=== PATIENT | male | born 1955 | race Caucasian/White ===

== ENCOUNTER 2016-12-24 11:06 | Emergency (ER) | payer MEDICARE, MEDICAID, SELFPAY ==
[2016-12-24 11:18] VITALS: BP 166/90
[2016-12-24] MEDS ORDERED: HYDROmorphone 1 MG/ML Syringe IM ONE (11:50)
--- NOTE | 2016-12-24 12:00 | EDM.PDOC ---
ED HPI GENERAL MEDICAL PROBLEM - General Chief Complaint: General Stated Complaint: RIB PAIN /SOB Time Seen by Provider: 12/24/16 11:24 Source of Information: Reports: Patient History Limitations: Reports: No limitations - History of Present Illness INITIAL COMMENTS - FREE TEXT/NARRATIVE: Patient is a 61-year-old male who presents to the ED complaining of right sided rib pain. Patient states this past October he fell on his left side and ended up having a CT of the chest revealing rib fractures to the left side. There was no rib fractures present on the right. Few days later patient slipped while walking on the snow/ice and grabbed a pickup mirror with his right arm catching himself from falling. Patient states he developed immediate discomfort to his right axilla with radiation of pain to the right anterior chest. Since then he's had pain to the right lateral chest that radiates anteriorly described as a sharp sensation relieved with some relief taking Percocet tabs. Patient is on chronic pain medications for lower extremity injury and prescribed Percocet tabs by Dr. Armas. Patient states discomfort to his right chest has minimally changed since onset. He presents to the ED today for further evaluation since he was here already seeing Dr. Armas. Patient does have a history of COPD with worsening cough as of recently secondary to viral upper respiratory infection. Denies any increase in shortness of breath with a discomfort. Denies any fever/chills, nausea/vomiting , diaphoresis, dizziness, lightheadedness, increased swelling to lower extremities, unilateral swelling to lower extremities, history of DVT/PE, hemoptysis, recent surgery, recent hospitalization, or history of cancer. Duration: Constant, Waxing/waning Location: Reports: chest Quality: Reports: Ache, Sharp, Stabbing, Throbbing Severity: moderate Improves with: Reports: None Worsens with: Reports: Other (palpation), Movement Context: Reports: Other (fall) Associated Symptoms: Reports: chest pain, cough w sputum, shortness of breath. Denies: fever/chills, loss of appetite, nausea/vomiting, syncope Treatments CLINICAL CYTOGENETICIST: Reports: Other (see below) (see HPI) Right Thoracic Pain Score (Numeric/FACES): 9 - Related Data Allergies Allergy/AdvReac Type Severity Reaction Status Date / Time No Known Allergies Allergy Verified 12/24/16 11:23 Home Meds: Home Meds Metaxalone [Skelaxin] 800 mg PO Q8HR PRN 05/27/15 [History] Pregabalin [Lyrica] 150 mg PO TID 05/27/15 [History] tiZANidine [Zanaflex] 2 - 4 mg PO BEDTIME PRN 05/27/15 [History] Amiodarone [Cordarone] 100 mg PO DAILY 06/09/16 [History] Furosemide [Lasix] 40 mg PO TID 06/09/16 [History] Labetalol [Normodyne] 200 mg PO Q12H 06/09/16 [History] atorvaSTATin [Lipitor] 40 mg PO BEDTIME 06/09/16 [History] Budesonide/Formoterol [Symbicort 160-4.5 MCG] 1 puff INH ASDIRECTED PRN [History] Lisinopril 5 mg PO DAILY 09/13/16 [History] oxyCODONE HCl/Acetaminophen [Percocet 5-325 mg Tablet] 1 tab PO Q6HR PRN [History] Albuterol/Ipratropium [DuoNeb 3.0-0.5 MG/3 ML] 3 ml NEB Q6HRRT #90 neb 11/26/16 [Rx] predniSONE 20 mg PO WITHBREAKFAST #20 tablet 11/26/16 [Rx] Apixaban [Eliquis] 5 mg PO DAILY 12/24/16 [History] Carvedilol [Carvedilol] 12.5 mg PO DAILY 12/24/16 [History] Past Medical History HEENT History: Reports: Impaired vision Other HEENT History: wears glasses Cardiovascular History: Reports: CAD, Hypertension, NM, Pacemaker, SOB on exertion, Stents Respiratory History: Reports: COPD, SOB Genitourinary History: Reports: Other (see below) Other Genitourinary History: states had "kidney issues" while in hospital at [facility], unable to tell what problem is Musculoskeletal History: Reports: Arthritis, Back pain, chronic, Other (see below) Other Musculoskeletal History: chronic pain Psychiatric History: Reports: Addiction Other Psychiatric History: smokes - Infectious Disease History Infectious Disease History: Reports: Measles - Past Surgical History Cardiovascular Surgical History: Reports: Coronary artery stent, Pacer Other Musculoskeletal Surgeries/Procedures:: Left knee Social & Family History - Family History Family Medical History: Noncontributory - Tobacco Use Smoking Status *Q: Current Every Day Smoker Years of Tobacco use: 40 Packs/Tins Daily: 1 Used Tobacco, but Quit: No Second Hand Smoke Exposure: Yes - Caffeine Use Caffeine Use: Reports: Coffee, Soda - Alcohol Use Days Per Week of Alcohol Use: 1 Number of Drinks Per Day: 6 Total Drinks Per Week: 6 - Recreational Drug Use Recreational Drug Use: No ED ROS GENERAL - Review of Systems Review Of Systems: ROS reveals no pertinent complaints other than HPI. Respiratory: Reports: shortness of breath (chronic), pleuritic chest pain, cough , sputum. Denies: wheezing, hemoptysis Cardiovascular: Reports: Chest pain, Dyspnea on exertion (chronic). Denies: Edema, Lightheadedness, Orthopnea, Palpitations, PND, Syncope GI/Abdominal: Denies: Abdominal pain, Diarrhea, Nausea, Vomiting Musculoskeletal: Denies: shoulder pain, arm pain, back pain Neurological: Denies: dizziness, headache, numbness, syncope, tingling ED EXAM, GENERAL - Physical Exam Exam: See Below Exam Limited By: No limitations General Appearance: alert, WD/WN, no apparent distress Eye Exam: bilateral eye: PERRL Ears: hearing grossly normal Nose: normal inspection Throat/Mouth: Normal voice, No airway compromise Neck: normal inspection, supple, non-tender, full range of motion Respiratory/Chest: no respiratory distress, lungs clear, normal breath sounds, no accessory muscle use, other (Tenderness along the fourth through seventh rib along the axillary line with radiation discomfort to the anterior chest. No deformity, crepitus, swelling, bruising noted.) Cardiovascular: normal peripheral pulses, regular rate, rhythm, no murmur Peripheral Pulses: 2+: radial (R) GI/Abdominal: normal bowel sounds, soft, non tender, no organomegaly, no distention Back Exam: normal inspection, full range of motion. No: CVA tenderness (L), CVA tenderness (R), paraspinal tenderness, vertebral tenderness Extremities: normal inspection, normal range of motion, non-tender, no pedal edema, normal capillary refill, other (Increased discomfort to the right axilla with elevation of arm above shoulder.) Neurological: alert, oriented, CN II-XII intact, normal cognition, no motor/ sensory deficits Psychiatric: normal affect, normal mood Skin Exam: Warm, Dry, Intact, Normal color, No rash Course - Vital Signs Last Recorded V/S: Last Vital Signs Temp 97.3 F 12/24/16 11:14 Pulse 69 12/24/16 11:14 Resp 16 12/24/16 11:14 BP 166/90 H 12/24/16 11:14 Pulse Ox 100 12/24/16 11:14 - Orders/Labs/Meds Orders: Active Orders 24 hr Category Date Time Status EKG Documentation Completion [RC] STAT Care 12/24/16 11:54 Active Labs: Laboratory Tests 12/24/16 12/24/16 12/24/16 Range/Units 13:37 13:37 13:45 WBC 7.28 (4.23-9.07) K/mm3 RBC 4.57 L (4.63-6.08) M/mm3 Hgb 14.5 (13.7-17.5) gm/L Hct 45.3 (40.1-51.0) % MCV 99.1 H (79.0-92.2) fl MCH 31.7 (25.7-32.2) pg MCHC 32.0 L (32.2-35.5) g/dl RDW Std Deviation 59.8 H (35.1-43.9) fL Plt Count 239 (163-337) K/mm3 MPV 10.1 (9.4-12.3) fl Neut % (Auto) 78.4 H (34.0-67.9) % Lymph % (Auto) 11.8 L (21.8-53.1) % [place] % (Auto) 6.9 (5.3-12.2) % Eos % (Auto) 2.1 (0.8-7.0) Baso % (Auto) 0.5 (0.1-1.2) % Neut # 5.71 H (1.78-5.38) K/mm3 Lymph # 0.86 L (1.32-3.57) K/mm3 [place] # 0.50 (0.30-0.82) K/mm3 Eos # 0.15 (0.04-0.54) K/mm3 Baso # 0.04 (0.01-0.08) K/mm3 Sodium 142 (136-145) mEq/L Potassium 3.7 (3.5-5.1) mEq/L Chloride 102 (98-107) mEq/L Carbon Dioxide 31 (21-32) mEq/L Anion Gap 12.7 (5-15) BUN 12 (7-18) mg/dL Creatinine 1.1 (0.7-1.3) mg/dL Est Cr Clr Drug Dosing 53.61 mL/min Estimated GFR (MDRD) > 60 (>60) mL/min BUN/Creatinine Ratio 10.9 L (14-18) Glucose 121 H (80-115) mg/dL Calcium 8.8 (8.5-10.1) mg/dL Total Bilirubin 0.3 (0.2-1.0) mg/dL AST 16 (15-37) U/L ALT 22 (16-63) U/L Alkaline Phosphatase 130 H (46-116) U/L Troponin I < 0.017 (0.00-0.056) ng/mL C-Reactive Protein 0.6 (<1.0) mg/dL Total Protein 7.1 (6.4-8.2) g/dl Albumin 3.7 (3.4-5.0) g/dl Globulin 3.4 gm/dL Albumin/Globulin Ratio 1.1 (1-2) Urine Color Yellow (Yellow) Urine Appearance Clear (Clear) Urine pH 6.5 (5.0-8.0) Ur Specific [employer] 1.020 (1.005-1.030) Urine Protein 1+ H (Negative) Urine Glucose (UA) Negative (Negative) Urine Ketones Negative (Negative) Urine Occult Blood Negative (Negative) Urine Nitrite Negative (Negative) Urine Bilirubin Negative (Negative) Urine Urobilinogen 0.2 (0.2-1.0) Ur Leukocyte Esterase Negative (Negative) Urine RBC Not seen (0-5) /hpf Urine WBC 0-5 (0-5) /hpf Ur Squamous Epith Cells 0-5 (0-5) /hpf Urine Bacteria Not seen (FEW) /hpf Urine Mucus Not seen (FEW) /hpf Meds: Medications Discontinued Medications Generic Name Dose Route Start Last Admin Trade Name Freq PRN Reason Stop Dose Admin Hydromorphone HCl 1 mg 12/24/16 11:50 12/24/16 11:56 Dilaudid IM 12/24/16 11:51 1 mg ONETIME ONE Administration - Re-Assessments/Exams Free Text/Narrative Re-Assessment/Exam: 12/24/16 12:[address] Javed, multiple blebs, lung scaring with no obvious acute bony abnormality. Reviewed previous CXR and CT of the chest. EKG revealed sinus rhythm at a rate of 66, normal P axis, NE interval is 152, QTC is 456, no acute ST changes noted. 12/24/16 13:03 Reassessment, asked the patient if the pain has improved with the Dilaudid. He states no. Now has pain is underneath his right rib. Will obtain basic labs, x-ray, and UA. 12/24/16 15:02 Labs reviewed. CBC and chemistry panel revealed no concerning findings at this point. Troponin was within normal limits. UA came back negative. X-ray the abdomen revealed scattered gas with the small bowel and colon is seen appears within normal limits at this time. Mild scoliosis is present no free air seen. Vascular calcifications noted. Will discharge patient home with instructions as documented. Departure - Departure Time of Disposition: 15:04 Disposition: Home, Self-Care 01 Condition: good Clinical Impression: Rib pain on right side, Constipation due to pain medication, Atypical chest pain Referrals: Geno Farley NP [Primary Care Provider] - Forms: ED Department Discharge Additional Instructions: Please follow up with PCP in the next week for reevaluation of right-sided chest discomfort. Suggest apply warm compresses to the affected area as needed for pain relief. Utilize Tylenol and ibuprofen in alternating fashion for discomfort. Refrain from any activities that cause worsening pain. In addition abdominal x-ray revealed increased stool pattern suggesting your constipated secondary to chronic pain meds. Suggest increasing fiber intake, increased exercise, increase water intake, and utilize MiraLax one capful every day for the next 6 weeks. Will also have you utilize Colace 100 mg twice a day for the next 5 days. Return back to the ED if you develop increasing pain, nausea/vomiting, fever/chills, worsening chest pain, worsening shortness breath , or any additional new or worsening symptoms. - My Orders Last 24 Hours: My Active Orders 12/24/16 11:54 EKG Documentation Completion [RC] STAT - Assessment/Plan Last 24 Hours: My Active Orders 12/24/16 11:54 EKG Documentation Completion [RC] STAT
--- NOTE | 2016-12-24 13:01 | CR ---
Chest and right ribs: Frontal view of the chest was obtained as well as 3 views of the right ribs. Comparison: Previous chest x-ray of 11/26/16. Stable parenchymal scarring seen within the right upper lung. Interstitial change is seen which also is stable compatible with fibrosis. Scattered scarring is also seen. Heart size does not appear enlarged. Tortuous thoracic aorta is seen. Pacemaker is present. Several old healed right lower rib fractures are seen. I do not see a definite acute fracture. Impression: 1. Multiple findings as noted above. No definite acute right-sided rib fracture is seen. Nondisplaced fracture could easily be missed. Diagnostic code #2
--- NOTE | 2016-12-24 13:52 | CR ---
Abdomen: Supine and upright views of the abdomen were obtained. Comparison: No previous abdominal x-ray. Scattered gas within small bowel and colon is seen which appears within normal limits at this time. Mild scoliosis is present within the spine. No free air is seen. Vascular calcification is noted. Impression: 1. Findings felt to be incidental as described above. Diagnostic code #2
== END 2016-12-24 15:20 | disposition home or self-care (01) ==
LOC: JD.ED 11:06
DX: R07.81 Pleurodynia (principal); R07.89 Other chest pain; K59.03 Drug induced constipation; I10 Essential (primary) hypertension; I25.2 Old myocardial infarction; F17.210 Nicotine dependence, cigarettes, uncomplicated; I25.10 Atherosclerotic heart disease of native coronary artery without angina pectoris; Z95.5 Presence of coronary angioplasty implant and graft; Z95.0 Presence of cardiac pacemaker; Z79.899 Other long term (current) drug therapy; S32.10XA Unspecified fracture of sacrum, initial encounter for closed fracture; S22.49XA Multiple fractures of ribs, unspecified side, initial encounter for closed fracture; W19.XXXA Unspecified fall, initial encounter; M48.06 Spinal stenosis, lumbar region; M80.88XA Other osteoporosis with current pathological fracture, vertebra(e), initial encounter for fracture; M41.9 Scoliosis, unspecified
CPT/HCPCS: 36415; 71101; 72100; 72170; 72220; 74020; 80053; 81001; 84484; 85025; 86140; 93005; 96372; 99213; 99284; J1170

== ENCOUNTER 2017-05-24 11:13 | Emergency (ER) | payer MEDICARE, MEDICAID, SELFPAY ==
[2017-05-24] MEDS ORDERED: Sodium Chloride 0.9% 10 ML Syringe FLUSH PRN (11:28)
[2017-05-24] MEDS ORDERED: Sodium Chloride 0.9% 500 ML IV ONE (11:28)
--- NOTE | 2017-05-24 11:52 | EDM.PDOC ---
ED HPI GENERAL MEDICAL PROBLEM - General Chief Complaint: Chest Pain Stated Complaint: CHEST PAIN FALLING BACK PAIN Time Seen by Provider: 05/24/17 11:18 Source of Information: Reports: Patient, RN Notes Reviewed - History of Present Illness INITIAL COMMENTS - FREE TEXT/NARRATIVE: 62-year-old male comes in with generalized weakness, dizziness and history of passing out twice in the past 5 hours. He states that his first episode of syncope was after getting up out of bed this morning around 6 AM. Become weak lightheaded and dizzy and then in his words "passed out ending up on the floor. Hydration of LOC uncertain. He then states that this did happen again a few hours later once again when standing up to walk to the bathroom. He may have hit his head lightly. He has no major headache. He has chronic neck and back discomfort but that is not worse than usual. He does feel tightness across his upper chest. However he states with his COPD his chest usually does feel tight. He also is short of breath and that also is a chronic problem for him. Did have one stent placed one year ago. He does take eloquis and also is on daily baby aspirin which she did take this morning as usual. Unfortunately he does continue to smoke. He states he has had productive cough at times clear, at times colored phlegm. No recent fever or chills Back Pain Score (Numeric/FACES): 7 - Related Data Allergies Allergy/AdvReac Type Severity Reaction Status Date / Time No Known Allergies Allergy Verified 05/24/17 11:25 Home Meds: Home Meds Amiodarone [Cordarone] 100 mg PO DAILY 06/09/16 [History] Furosemide [Lasix] 40 mg PO BID 06/09/16 [History] atorvaSTATin [Lipitor] 40 mg PO BEDTIME 06/09/16 [History] Budesonide/Formoterol [Symbicort 160-4.5 MCG] 2 puff INH BID 09/13/16 [History] Lisinopril 5 mg PO DAILY 09/13/16 [History] Apixaban [Eliquis] 5 mg PO BID 12/24/16 [History] Carvedilol [Carvedilol] 12.5 mg PO BID 12/24/16 [History] Albuterol/Ipratropium [DuoNeb 3.0-0.5 MG/3 ML] 3 ml NEB QID 08/11/17 [History] Omeprazole 40 mg PO BID 05/24/17 [History] Spironolactone [Aldactone] 25 mg PO DAILY 05/24/17 [History] Past Medical History HEENT History: Reports: Impaired Vision Other HEENT History: wears corrective lenses Cardiovascular History: Reports: CAD, Hypertension, NM, Pacemaker, SOB on Exertion, Stents Respiratory History: Reports: COPD, SOB Genitourinary History: Reports: Other (See Below) Other Genitourinary History: states had "kidney issues" while in hospital at [facility], unable to tell what problem is Musculoskeletal History: Reports: Arthritis, Back Pain, Chronic, Other (See Below) Other Musculoskeletal History: chronic pain Psychiatric History: Reports: Addiction Other Psychiatric History: smokes - Infectious Disease History Infectious Disease History: Reports: Measles - Past Surgical History Cardiovascular Surgical History: Reports: Coronary Artery Stent, Pacer Social & Family History - Family History Family Medical History: Noncontributory - Tobacco Use Smoking Status *Q: Current Every Day Smoker Years of Tobacco use: 40 Packs/Tins Daily: 1 Used Tobacco, but Quit: No Second Hand Smoke Exposure: No - Caffeine Use Caffeine Use: Reports: Coffee - Alcohol Use Days Per Week of Alcohol Use: 1 Number of Drinks Per Day: 6 Total Drinks Per Week: 6 - Recreational Drug Use Recreational Drug Use: No ED ROS GENERAL - Review of Systems Review Of Systems: See Below Constitutional: Reports: Diaphoresis (Gone). Denies: Fever, Chills HEENT: Denies: Throat Pain, Throat Swelling, Vertigo Respiratory: Reports: Shortness of Breath (Chronically, exertional), Cough, Sputum. Denies: Pleuritic Chest Pain Cardiovascular: Reports: Chest Pain (Anterior chest does feel tight, did have some radiation to his shoulder earlier this morning, that is gone), Dyspnea on Exertion, Lightheadedness, Palpitations (2), Syncope. Denies: Edema GI/Abdominal: Reports: Diarrhea (Somewhat chronic). Denies: Abdominal Pain ( occasional), Nausea, Vomiting Musculoskeletal: Reports: Neck Pain (Chronic), Shoulder Pain (Gone). Denies: Leg Pain Neurological: Reports: Dizziness (Worse when standing), Weakness (Generalized). Denies: Trouble Speaking ED EXAM, GENERAL - Physical Exam Exam: See Below General Appearance: Alert, No Apparent Distress Eye Exam: Bilateral Eye: PERRL Throat/Mouth: Normal Inspection, Normal Oropharynx Head: Atraumatic Neck: Supple, Full Range of Motion Respiratory/Chest: Respiratory Distress (Mild tachypnea). No: Rales, Rhonchi, Wheezing Cardiovascular: Regular Rate, Rhythm GI/Abdominal: Soft, Non-Tender Back Exam: No: CVA Tenderness (L), CVA Tenderness (R) Extremities: Other (He does have skin changes of stasis dermatitis bilateral). No: Pedal Edema, Leg Pain, Increased Warmth, Redness Skin Exam: Warm, Dry EKG INTERPRETATION EKG Date: 05/24/17 Rhythm: NSR [place]: Normal P-Wave: Present QRS: Normal ST-T: Normal Course - Vital Signs Last Recorded V/S: Last Vital Signs Temp 97.7 F 05/24/17 11:19 Pulse 68 05/24/17 15:50 Resp 16 05/24/17 15:50 BP 138/72 05/24/17 15:50 Pulse Ox 92 L 05/24/17 15:50 - Orders/Labs/Meds Orders: Active Orders 24 hr Category Date Time Status EKG 12 Lead [EKG Documentation Completion] [RC] STAT Care 05/24/17 11:26 Active Peripheral IV Care [RC] . DIRECTED Care 05/24/17 11:28 Active Peripheral IV Insertion Adult [OM.PC] Stat Oth 05/24/17 11:28 Ordered Labs: Laboratory Tests 05/24/17 05/24/17 05/24/17 Range/Units 11:30 11:30 14:10 WBC 10.13 H (4.23-9.07) K/mm3 RBC 3.90 L (4.63-6.08) M/mm3 Hgb 12.7 L (13.7-17.5) gm/L Hct 39.1 L (40.1-51.0) % MCV 100.3 H (79.0-92.2) fl MCH 32.6 H (25.7-32.2) pg MCHC 32.5 (32.2-35.5) g/dl RDW Std Deviation 56.7 H (35.1-43.9) fL Plt Count 224 (163-337) K/mm3 MPV 10.7 (9.4-12.3) fl Neut % (Auto) 75.6 H (34.0-67.9) % Lymph % (Auto) 8.8 L (21.8-53.1) % [place] % (Auto) 11.8 (5.3-12.2) % Eos % (Auto) 2.9 (0.8-7.0) Baso % (Auto) 0.6 (0.1-1.2) % Neut # (Auto) 7.66 H (1.78-5.38) K/mm3 Lymph # (Auto) 0.89 L (1.32-3.57) K/mm3 [place] # (Auto) 1.20 H (0.30-0.82) K/mm3 Eos # (Auto) 0.29 (0.04-0.54) K/mm3 Baso # (Auto) 0.06 (0.01-0.08) K/mm3 Manual Slide Review Abnormal smear Sodium 137 (136-145) mEq/L Potassium 4.5 (3.5-5.1) mEq/L Chloride 103 (98-107) mEq/L Carbon Dioxide 27 (21-32) mEq/L Anion Gap 11.5 (5-15) BUN 20 H (7-18) mg/dL Creatinine 1.6 H (0.7-1.3) mg/dL Est Cr Clr Drug Dosing 33.35 mL/min Estimated GFR (MDRD) 44 (>60) mL/min BUN/Creatinine Ratio 12.5 L (14-18) Glucose 93 (80-115) mg/dL Calcium 9.4 (8.5-10.1) mg/dL Total Bilirubin 0.5 (0.2-1.0) mg/dL AST 21 (15-37) U/L ALT 23 (16-63) U/L Alkaline Phosphatase 74 (46-116) U/L Troponin I < 0.017 < 0.017 (0.00-0.056) ng/mL [id number] Pept 1588 H (0-125) pg/mL Total Protein 6.9 (6.4-8.2) g/dl Albumin 3.7 (3.4-5.0) g/dl Globulin 3.2 gm/dL Albumin/Globulin Ratio 1.2 (1-2) Meds: Medications Discontinued Medications Generic Name Dose Route Start Last Admin Trade Name Aye PRN Reason Stop Dose Admin Hydromorphone HCl 0.5 mg 05/24/17 12:14 05/24/17 12:22 Dilaudid IVPUSH 05/24/17 12:15 0.5 mg ONETIME ONE Administration Hydromorphone HCl 0.5 mg 05/24/17 12:47 05/24/17 13:04 Dilaudid IVPUSH 05/24/17 12:48 0.5 mg ONETIME ONE Administration Hydromorphone HCl 0.5 mg 05/24/17 14:40 05/24/17 14:47 Dilaudid IVPUSH 05/24/17 14:41 0.5 mg ONETIME ONE Administration Sodium Chloride 500 mls @ 999 mls/hr 05/24/17 11:28 05/24/17 11:35 Normal Saline IV 05/24/17 11:58 999 mls/hr .BOLUS ONE Administration Sodium Chloride 10 ml 05/24/17 11:28 05/24/17 11:35 Saline Flush FLUSH 10 ml ASDIRECTED PRN Administration Keep Vein Open - Re-Assessments/Exams Free Text/Narrative Re-Assessment/Exam: 05/24/17 17:17 his initial troponins negative. His 2-1/2 hour troponin also came back negative. Blood pressures have been running [place] here in the ED. I am going to cut back on his Carvedilol from 12.5 mg twice daily to 6.25 mg twice daily. Discharge instructions as documented. Departure - Departure Time of Disposition: 15:17 Disposition: Home, Self-Care 01 Condition: Fair Clinical Impression: Hypotension due to medication Syncope Qualifiers: Syncope type: unspecified Qualified Code(s): R55 - Syncope and collapse Instructions: Hypotension, Syncope, [id number] Referrals: Geno Farley NP [Primary Care Provider] - Forms: ED Department Discharge Additional Instructions: Drink plenty of water to maintain hydration, reduce your dosage of carvidelol from 12.5 mg twice daily to 6.25 mg twice daily. You should be able to break those tabs in half, talk 1/2 of the 12.5 mg dose twice daily until further directed by your medical provider. Continue other medications as prescribed. Follow-up with your regular medical provider in about 5-7 days for recheck. Call for appointment. Return to ED if symptoms worsening in any way. - My Orders Last 24 Hours: My Active Orders 05/24/17 11:26 EKG 12 Lead [EKG Documentation Completion] [RC] STAT 05/24/17 11:28 Peripheral IV Care [RC] . DIRECTED Peripheral IV Insertion Adult [OM.PC] Stat - Assessment/Plan Last 24 Hours: My Active Orders 05/24/17 11:26 EKG 12 Lead [EKG Documentation Completion] [RC] STAT 05/24/17 11:28 Peripheral IV Care [RC] . DIRECTED Peripheral IV Insertion Adult [OM.PC] Stat
[2017-05-24] MEDS ORDERED: HYDROmorphone 0.5 MG/0.5 ML Syringe IVPUSH ONE ×2 (12:14→14:40)
--- NOTE | 2017-05-24 12:24 | CR ---
Chest: Portable view of the chest was obtained. Comparison: Previous chest x-ray of 12/24/16. Stable scarring and bullous change is seen within the right upper chest from prior chest x-ray. Bullous change also noted within the left upper chest. No acute appearing infiltrates are seen. Heart size and mediastinum are within normal limits. Pacemaker is noted. Bony structures are grossly intact. Impression: 1. Chronic change as described above. Nothing acute is appreciated on portable chest x-ray. Diagnostic code #3
[2017-05-24] MEDS ORDERED: HYDROmorphone 1 MG/ML Syringe IVPUSH ONE (12:47)
[2017-05-24 15:51] VITALS: BP 138/72
== END 2017-05-24 15:55 | disposition home or self-care (01) ==
LOC: JD.ED 11:13
DX: I95.2 Hypotension due to drugs (principal); I10 Essential (primary) hypertension; I25.10 Atherosclerotic heart disease of native coronary artery without angina pectoris; J44.9 Chronic obstructive pulmonary disease, unspecified; M19.90 Unspecified osteoarthritis, unspecified site; R06.02 Shortness of breath; F17.210 Nicotine dependence, cigarettes, uncomplicated; Z95.5 Presence of coronary angioplasty implant and graft; Z79.899 Other long term (current) drug therapy
CPT/HCPCS: 36415; 71010; 80053; 83880; 84484; 85025; 93005; 96361; 96374; 96376; 99285; J1170; J7040; J7050; 99284

== ENCOUNTER 2017-07-08 09:09 | Inpatient (IN) | payer MEDICARE, MEDICAID, OTHER ==
[2017-07-08] MEDS ORDERED: Sodium Chloride 0.9% 10 ML Syringe FLUSH PRN (09:21)
[2017-07-08] MEDS ORDERED: Albuterol/Ipratropium 3.0-0.5 MG/3 ML Neb Soln NEB ONE (09:21)
[2017-07-08] MEDS ORDERED: methylPREDNISolone Sodium Succinate 125 MG/2 ML SDV IVPUSH ONE (09:21)
[2017-07-08] MEDS ORDERED: HYDROmorphone 0.5 MG/0.5 ML Syringe IVPUSH ONE ×2 (09:27→10:12)
[2017-07-08] MEDS ORDERED: Albuterol/Ipratropium 3.0-0.5 MG/3 ML Neb Soln ONE (09:27)
--- NOTE | 2017-07-08 09:29 | EDM.PDOC ---
ED HPI GENERAL MEDICAL PROBLEM - General Chief Complaint: Respiratory Problem Stated Complaint: SOB Time Seen by Provider: 07/08/17 09:16 Source of Information: Reports: Patient, RN Notes Reviewed - History of Present Illness INITIAL COMMENTS - FREE TEXT/NARRATIVE: 62-year-old male with worsening shortness of breath over the past week to 10 days. He was started on home oxygen about a week ago. He states he has been using that mainly at night. Last night even with the oxygen he was more short of breath and usual. He does have a chronic cough occasionally productive of colored phlegm. His anterior chest does feel tight with the difficulty breathing. No major pain into the shoulder or arm. No abdominal pain nausea vomiting. He comes into the ED off of oxygen extremely short of breath, moderately hypoxic with initial sats in the 70s. he does have history of quite severe COPD, congestive heart failure and coronary artery disease. Back Pain Score (Numeric/FACES): 8 - Related Data Allergies Allergy/AdvReac Type Severity Reaction Status Date / Time No Known Allergies Allergy Verified 07/08/17 09:22 Home Meds: Home Meds Amiodarone [Cordarone] 100 mg PO DAILY 06/09/16 [History] Furosemide [Lasix] 40 mg PO BID 06/09/16 [History] atorvaSTATin [Lipitor] 40 mg PO BEDTIME 06/09/16 [History] Budesonide/Formoterol [Symbicort 160-4.5 MCG] 2 puff INH BID 09/13/16 [History] Lisinopril 5 mg PO DAILY 09/13/16 [History] Apixaban [Eliquis] 5 mg PO BID 12/24/16 [History] Carvedilol [Carvedilol] 12.5 mg PO BID 12/24/16 [History] Omeprazole 40 mg PO BID 05/24/17 [History] Spironolactone [Aldactone] 25 mg PO DAILY 05/24/17 [History] Albuterol [Ventolin HFA] 2 puff INH Q4H PRN 07/08/17 [History] Hydrocodone/Acetaminophen [Hydrocodon-Acetaminoph 7.5-325] 1 tab PO Q6H PRN [History] Metaxalone 800 mg PO Q8H PRN 07/08/17 [History] Pregabalin [Lyrica] 150 mg PO Q8H PRN 07/08/17 [History] Past Medical History HEENT History: Reports: Impaired Vision Other HEENT History: wears corrective lenses Cardiovascular History: Reports: CAD, Hypertension, [place], Pacemaker, SOB on Exertion, Stents Respiratory History: Reports: COPD, SOB Genitourinary History: Reports: Other (See Below) Other Genitourinary History: states had "kidney issues" while in hospital at [facility], unable to tell what problem is Musculoskeletal History: Reports: Arthritis, Back Pain, Chronic, Other (See Below) Other Musculoskeletal History: chronic pain Psychiatric History: Reports: Addiction Other Psychiatric History: smokes - Infectious Disease History Infectious Disease History: Reports: Measles - Past Surgical History Cardiovascular Surgical History: Reports: Coronary Artery Stent, Pacer Social & Family History - Family History Family Medical History: Noncontributory - Tobacco Use Smoking Status *Q: Current Every Day Smoker Years of Tobacco use: 40 Packs/Tins Daily: 1 Used Tobacco, but Quit: No Second Hand Smoke Exposure: No - Caffeine Use Caffeine Use: Reports: Coffee - Alcohol Use Days Per Week of Alcohol Use: 1 Number of Drinks Per Day: 6 Total Drinks Per Week: 6 - Recreational Drug Use Recreational Drug Use: No ED ROS GENERAL - Review of Systems Review Of Systems: See Below Constitutional: Denies: Fever, Chills, Diaphoresis HEENT: Denies: Sinus Problem, Throat Pain Respiratory: Reports: Shortness of Breath, Wheezing, Cough, Sputum (occasional) Cardiovascular: Reports: Chest Pain, Lightheadedness (anterior chest does feel tight) GI/Abdominal: Denies: Abdominal Pain, Nausea, Vomiting Musculoskeletal: Reports: Back Pain (chronic low back pain). Denies: Neck Pain , Shoulder Pain, Arm Pain Skin: Denies: Rash Neurological: Reports: Dizziness, Difficulty Walking (secondary to difficulty breathing), Weakness (generalized) ED EXAM, GENERAL - Physical Exam Exam: See Below General Appearance: Alert, Anxious, Moderate Distress, Other (very short of breath on arrival to ED) Eye Exam: Bilateral Eye: PERRL Throat/Mouth: Normal Oropharynx Head: Atraumatic. No: Facial Swelling Neck: Supple, Full Range of Motion, Other (no JVD) Respiratory/Chest: Respiratory Distress (severe), Decreased Breath Sounds, Rhonchi, Wheezing (mild bilateralmoderate bilateral), Retractions Cardiovascular: Regular Rate, Rhythm GI/Abdominal: Soft, Non-Tender. No: Guarding Back Exam: Paraspinal Tenderness (low back) Neurological: Alert, No Motor/Sensory Deficits Skin Exam: Warm, Dry, Normal Color EKG INTERPRETATION EKG Date: 07/08/17 Rhythm: NSR [place]: Normal P-Wave: Present QRS: Normal ST-T: Depressed (he does have some mild ST depression inferior leads and also V3 6) Course - Vital Signs Last Recorded V/S: Last Vital Signs Temp 97.0 F 07/08/17 09:22 Pulse 63 07/08/17 10:38 Resp 16 07/08/17 10:38 BP 122/71 07/08/17 10:38 Pulse Ox 95 07/08/17 10:38 - Orders/Labs/Meds Orders: Active Orders 24 hr Category Date Time Status EKG 12 Lead [EKG Documentation Completion] [RC] STAT Care 07/08/17 09:21 Active Oxygen Therapy [RC] ASDIRECTED Care 07/08/17 09:21 Active Peripheral IV Care [RC] . DIRECTED Care 07/08/17 09:21 Active RT Aerosol Therapy [RC] ASDIRECTED Care 07/08/17 09:21 Active RT Aerosol Therapy [RC] ASDIRECTED Care 07/08/17 10:12 Active BLOOD GAS ARTERIAL [BG] Stat Lab 07/08/17 10:45 Received Sodium Chloride 0.9% [Saline Flush] Med 07/08/17 09:21 Active 10 ml FLUSH ASDIRECTED PRN Peripheral IV Insertion Adult [OM.PC] Stat Oth 07/08/17 09:21 Ordered Medication Orders Sodium Chloride (Saline Flush) 10 ml FLUSH ASDIRECTED PRN PRN Reason: Keep Vein Open Last Admin: 07/08/17 09:38 Dose: 10 ml Labs: Laboratory Tests 07/08/17 07/08/17 07/08/17 Range/Units 09:25 09:25 09:25 WBC 8.64 (4.23-9.07) K/mm3 RBC 4.14 L (4.63-6.08) M/mm3 Hgb 13.5 L (13.7-17.5) gm/L Hct 42.4 (40.1-51.0) % MCV 102.4 H (79.0-92.2) fl MCH 32.6 H (25.7-32.2) pg MCHC 31.8 L (32.2-35.5) g/dl RDW Std Deviation 57.5 H (35.1-43.9) fL Plt Count 184 (163-337) K/mm3 MPV 10.4 (9.4-12.3) fl Neut % (Auto) 74.6 H (34.0-67.9) % Lymph % (Auto) 10.0 L (21.8-53.1) % [place]ran % (Auto) 12.7 H (5.3-12.2) % Eos % (Auto) 2.2 (0.8-7.0) Baso % (Auto) 0.3 (0.1-1.2) % Neut # (Auto) 6.44 H (1.78-5.38) K/mm3 Lymph # (Auto) 0.86 L (1.32-3.57) K/mm3 [place]chran # (Auto) 1.10 H (0.30-0.82) K/mm3 Eos # (Auto) 0.19 (0.04-0.54) K/mm3 Baso # (Auto) 0.03 (0.01-0.08) K/mm3 Sodium 140 (136-145) mEq/L Potassium 4.1 (3.5-5.1) mEq/L Chloride 98 (98-107) mEq/L Carbon Dioxide 36 H (21-32) mEq/L Anion Gap 10.1 (5-15) BUN 13 (7-18) mg/dL Creatinine 1.1 (0.7-1.3) mg/dL Est Cr Clr Drug Dosing 52.92 mL/min Estimated GFR (MDRD) > 60 (>60) mL/min BUN/Creatinine Ratio 11.8 L (14-18) Glucose 124 H (80-115) mg/dL Calcium 9.5 (8.5-10.1) mg/dL Total Bilirubin 0.5 (0.2-1.0) mg/dL AST 20 (15-37) U/L ALT 19 (16-63) U/L Alkaline Phosphatase 77 (46-116) U/L Troponin I < 0.017 (0.00-0.056) ng/mL C-Reactive Protein 2.3 H* (<1.0) mg/dL NT-Pro-B Natriuret Pep (0-125) pg/mL Total Protein 7.4 (6.4-8.2) g/dl Albumin 3.9 (3.4-5.0) g/dl Globulin 3.5 gm/dL Albumin/Globulin Ratio 1.1 (1-2) 07/08/ Range/Units 09:25 WBC (4.23-9.07) K/mm3 RBC (4.63-6.08) M/mm3 Hgb (13.7-17.5) gm/L Hct (40.1-51.0) % MCV (79.0-92.2) fl MCH (25.7-32.2) pg MCHC (32.2-35.5) g/dl RDW Std Deviation (35.1-43.9) fL Plt Count (163-337) K/mm3 MPV (9.4-12.3) fl Neut % (Auto) (34.0-67.9) % Lymph % (Auto) (21.8-53.1) % [place]chran % (Auto) (5.3-12.2) % Eos % (Auto) (0.8-7.0) Baso % (Auto) (0.1-1.2) % Neut # (Auto) (1.78-5.38) K/mm3 Lymph # (Auto) (1.32-3.57) K/mm3 [place]chran # (Auto) (0.30-0.82) K/mm3 Eos # (Auto) (0.04-0.54) K/mm3 Baso # (Auto) (0.01-0.08) K/mm3 Sodium (136-145) mEq/L Potassium (3.5-5.1) mEq/L Chloride (98-107) mEq/L Carbon Dioxide (21-32) mEq/L Anion Gap (5-15) BUN (7-18) mg/dL Creatinine (0.7-1.3) mg/dL Est Cr Clr Drug Dosing mL/min Estimated GFR (MDRD) (>60) mL/min BUN/Creatinine Ratio (14-18) Glucose (80-115) mg/dL Calcium (8.5-10.1) mg/dL Total Bilirubin (0.2-1.0) mg/dL AST (15-37) U/L ALT (16-63) U/L Alkaline Phosphatase (46-116) U/L Troponin I (0.00-0.056) ng/mL C-Reactive Protein (<1.0) mg/dL NT-Pro-B Natriuret Pep 1759 H (0-125) pg/mL Total Protein (6.4-8.2) g/dl Albumin (3.4-5.0) g/dl Globulin gm/dL Albumin/Globulin Ratio (1-2) Meds: Medications Generic Name Dose Route Start Last Admin Trade Name Freq PRN Reason Stop Dose Admin Sodium Chloride 10 ml 07/08/17 09:21 07/08/17 09:38 Saline Flush FLUSH 10 ml ASDIRECTED PRN Administration Keep Vein Open Discontinued Medications Generic Name Dose Route Start Last Admin Trade Name Freq PRN Reason Stop Dose Admin Albuterol 2.5 mg 07/08/17 10:12 07/08/17 10:19 Proventil Neb Soln NEB 07/08/17 10:13 2.5 mg ONETIME ONE Administration Albuterol/Ipratropium 3 ml 07/08/17 09:21 07/08/17 09:27 Duoneb 3.0-0.5 Mg/3 Ml NEB 07/08/17 09:22 3 ml ONETIME ONE Administration Albuterol/Ipratropium Confirm 07/08/17 09:27 07/08/17 09:38 Duoneb 3.0-0.5 Mg/3 Ml Administered 07/08/17 09:28 Not Given Dose 3 ml .ROUTE .STK-MED ONE Hydromorphone HCl 0.5 mg 07/08/17 09:27 07/08/17 09:35 Dilaudid IVPUSH 07/08/17 09:28 0.5 mg ONETIME ONE Administration Hydromorphone HCl 0.5 mg 07/08/17 10:12 07/08/17 10:36 Dilaudid IVPUSH 07/08/17 10:13 0.5 mg ONETIME ONE Administration Methylprednisolone Sodium Succinate 125 mg 07/08/17 09:21 07/08/17 09:37 Solu-Medrol IVPUSH 07/08/17 09:22 125 mg ONETIME ONE Administration Departure - Departure Time of Disposition: 10:59 Disposition: Admitted As Inpatient 65 Condition: Fair Clinical Impression: COPD exacerbation, Hypoxia - Discharge Information Referrals: Geno Farley NP [Primary Care Provider] - Forms: ED Department Discharge ED Communication - Discussed Case With (1) Discussed Case With (1): Admitting Provider (Discussed with Dr Jeff) - My Orders Last 24 Hours: My Active Orders 07/08/17 09:21 EKG 12 Lead [EKG Documentation Completion] [RC] STAT Oxygen Therapy [RC] ASDIRECTED Peripheral IV Care [RC] . DIRECTED RT Aerosol Therapy [RC] ASDIRECTED Sodium Chloride 0.9% [Saline Flush] 10 ml FLUSH ASDIRECTED PRN Peripheral IV Insertion Adult [OM.PC] Stat 07/08/17 10:12 RT Aerosol Therapy [RC] ASDIRECTED 07/08/17 10:45 BLOOD GAS ARTERIAL [BG] Stat - Assessment/Plan Last 24 Hours: My Active Orders 07/08/17 09:21 EKG 12 Lead [EKG Documentation Completion] [RC] STAT Oxygen Therapy [RC] ASDIRECTED Peripheral IV Care [RC] . DIRECTED RT Aerosol Therapy [RC] ASDIRECTED Sodium Chloride 0.9% [Saline Flush] 10 ml FLUSH ASDIRECTED PRN Peripheral IV Insertion Adult [OM.PC] Stat 07/08/17 10:12 RT Aerosol Therapy [RC] ASDIRECTED 07/08/17 10:45 BLOOD GAS ARTERIAL [BG] Stat
[2017-07-08] MEDS ORDERED: Albuterol 0.083% 2.5 MG/3 ML Neb Soln NEB ONE (10:12)
--- NOTE | 2017-07-08 10:38 | CR ---
Chest: Portable view of the chest was obtained. Comparison: Previous chest x-ray of 05/24/17. Scarring is seen within the right upper lung with bullous change. Lung markings are diffusely increased which also appeared to be chronic. No acute infiltrates are seen. Heart size and mediastinum are within normal limits. Pacemaker is noted. Old healed left clavicle fracture is noted. Impression: 1. Chronic changes as noted above which are stable from prior chest x-ray. 2. Nothing acute is identified on portable chest x-ray. Diagnostic code #3
--- NOTE | 2017-07-08 11:27 | PCM.HP ---
H&P History of Present Illness - General Date of Service: 07/08/17 Admit Problem/Dx: COPD Exacerbation Source of Information: Patient, Old Records, Provider, RN Notes Reviewed History Limitations: Reports: Respiratory Distress Back Pain Score (Numeric/FACES): 8 - Related Data Allergies/Adverse Reactions: Allergies Allergy/AdvReac Type Severity Reaction Status Date / Time No Known Allergies Allergy Verified 07/08/17 09:22 Home Medications: Home Meds Amiodarone [Cordarone] 100 mg PO DAILY 06/09/16 [History] Furosemide [Lasix] 40 mg PO BID 06/09/16 [History] atorvaSTATin [Lipitor] 40 mg PO BEDTIME 06/09/16 [History] Budesonide/Formoterol [Symbicort 160-4.5 MCG] 2 puff INH BID 09/13/16 [History] Lisinopril 5 mg PO DAILY 09/13/16 [History] Apixaban [Eliquis] 5 mg PO BID 12/24/16 [History] Carvedilol [Carvedilol] 12.5 mg PO BID 12/24/16 [History] Omeprazole 40 mg PO BID 05/24/17 [History] Spironolactone [Aldactone] 25 mg PO DAILY 05/24/17 [History] Albuterol [Ventolin HFA] 2 puff INH Q4H PRN 07/08/17 [History] Hydrocodone/Acetaminophen [Hydrocodon-Acetaminoph 7.5-325] 1 tab PO Q6H PRN [History] Metaxalone 800 mg PO Q8H PRN 07/08/17 [History] Pregabalin [Lyrica] 150 mg PO Q8H PRN 07/08/17 [History] Past Medical History HEENT History: Reports: Impaired Vision Other HEENT History: wears corrective lenses Cardiovascular History: Reports: CAD, Hypertension, [place], Pacemaker, SOB on Exertion, Stents Respiratory History: Reports: COPD, SOB Genitourinary History: Reports: Other (See Below) Other Genitourinary History: states had "kidney issues" while in hospital at [facility], unable to tell what problem is Musculoskeletal History: Reports: Arthritis, Back Pain, Chronic, Other (See Below) Other Musculoskeletal History: chronic pain Psychiatric History: Reports: Addiction Other Psychiatric History: smokes - Infectious Disease History Infectious Disease History: Reports: Measles - Past Surgical History Cardiovascular Surgical History: Reports: Coronary Artery Stent, Pacer Social & Family History - Family History Family Medical History: Noncontributory - Tobacco Use Smoking Status *Q: Current Every Day Smoker Years of Tobacco use: 40 Packs/Tins Daily: 1 Used Tobacco, but Quit: No Second Hand Smoke Exposure: No - Caffeine Use Caffeine Use: Reports: Coffee - Alcohol Use Days Per Week of Alcohol Use: 1 Number of Drinks Per Day: 6 Total Drinks Per Week: 6 - Recreational Drug Use Recreational Drug Use: No H&P Review of Systems - Review of Systems: Review Of Systems: See Below Exam - Exam Exam: See Below - Vital Signs Vital Signs: Last Vital Signs Temp 36.1 C 07/08/17 09:22 Pulse 63 07/08/17 10:38 Resp 16 07/08/17 10:38 BP 122/71 07/08/17 10:38 Pulse Ox 95 07/08/17 10:38 Weight: 54.431 kg - Patient Data Result Diagrams: 07/08/17 09:25 07/08/17 09:25 *Q Meaningful Use (ADM) - VTE *Q VTE Criteria *Q: - Stroke *Q Stroke Criteria *Q: - AMI *Q AMI Criteria *Q: Problem List Initiated/Reviewed/Updated: Yes Orders Last 24hrs: Medication Orders Sodium Chloride (Saline Flush) 10 ml FLUSH ASDIRECTED PRN PRN Reason: Keep Vein Open Last Admin: 07/08/17 09:38 Dose: 10 ml
[2017-07-08] MEDS ORDERED: Pneumococcal Polyvalent-23 Vaccine 0.5 ML SDV IM ONE (11:33)
[2017-07-08] MEDS ORDERED: LORazepam 2 MG/ML MDV IV PRN (12:03)
[2017-07-08] MEDS ORDERED: Acetaminophen 325 MG Tab PO PRN (12:03)
[2017-07-08] MEDS ORDERED: Docusate Sodium 100 MG Cap PO PRN (12:03)
[2017-07-08] MEDS ORDERED: Ondansetron 4 MG/2 ML SDV IV PRN (12:03)
[2017-07-08] MEDS ORDERED: Polyethylene Glycol 3350 Powder 17 GM Packet PO PRN (12:03)
[2017-07-08] MEDS ORDERED: Bisacodyl 5 MG Tab PO PRN (12:03)
[2017-07-08] MEDS ORDERED: Promethazine 12.5 MG in Sodium Chloride 0.9% 50 ML IV PRN (12:03)
[2017-07-08] MEDS ORDERED: Non-Formulary Medication 1 Each (Hydrocodone/Acetaminophen 1 TAB) PO PRN (12:11)
[2017-07-08] MEDS ORDERED: Albuterol 6.7 GM Inhaler INH PRN (12:11)
[2017-07-08] MEDS ORDERED: Pregabalin 75 MG Cap PO PRN (12:11)
[2017-07-08] MEDS: Morphine 2 MG/ML Syringe IVPUSH PRN ×2 (12:47→16:24)
[2017-07-08] MEDS: Acetaminophen/HYDROcodone 325-5 MG Tab PO PRN ×3 (12:53→21:03)
[2017-07-08] MEDS: Furosemide 40 MG Tab PO SCH (13:07)
--- NOTE | 2017-07-08 13:16 | PCM.HP ---
<Ashwini Sanches - Last Filed: 07/08/17 13:52> H&P History of Present Illness - General Date of Service: 07/08/17 Admit Problem/Dx: COPD Exacerbation Source of Information: Patient History Limitations: Reports: No Limitations - History of Present Illness Onset of Symptoms: Reports: Sudden Symptom Onset Date: 07/05/17 Duration of Symptoms: Reports: Day(s):, Getting Worse (Was getting worse since Saturday) Associated Symptoms: Reports: Shortness of Breath Back Pain Score (Numeric/FACES): 8 - Related Data Allergies/Adverse Reactions: Allergies Allergy/AdvReac Type Severity Reaction Status Date / Time No Known Allergies Allergy Verified 07/08/17 09:22 Home Medications: Home Meds Amiodarone [Cordarone] 100 mg PO DAILY 06/09/16 [History] Furosemide [Lasix] 40 mg PO BID 06/09/16 [History] atorvaSTATin [Lipitor] 40 mg PO BEDTIME 06/09/16 [History] Budesonide/Formoterol [Symbicort 160-4.5 MCG] 2 puff INH BID 09/13/16 [History] Lisinopril 5 mg PO DAILY 09/13/16 [History] Apixaban [Eliquis] 5 mg PO BID 12/24/16 [History] Carvedilol [Carvedilol] 12.5 mg PO BID 12/24/16 [History] Omeprazole 40 mg PO BID 05/24/17 [History] Spironolactone [Aldactone] 25 mg PO DAILY 05/24/17 [History] Albuterol [Ventolin HFA] 2 puff INH Q4H PRN 07/08/17 [History] Hydrocodone/Acetaminophen [Hydrocodon-Acetaminoph 7.5-325] 1 tab PO Q6H PRN [History] Metaxalone 800 mg PO Q8H PRN 07/08/17 [History] Pregabalin [Lyrica] 150 mg PO Q8H PRN 07/08/17 [History] Past Medical History HEENT History: Reports: Impaired Vision Other HEENT History: wears corrective lenses Cardiovascular History: Reports: CAD, Hypertension, MS, Pacemaker, SOB on Exertion, Stents Respiratory History: Reports: COPD, SOB Genitourinary History: Reports: Other (See Below) Other Genitourinary History: states had "kidney issues" while in hospital at [facility], unable to tell what problem is Musculoskeletal History: Reports: Arthritis, Back Pain, Chronic, Other (See Below) Other Musculoskeletal History: compression fractures x 5, arthritis to Lt knee, chronic pain Neurological History: Reports: None Psychiatric History: Reports: Addiction Other Psychiatric History: smokes - Infectious Disease History Infectious Disease History: Reports: Measles - Past Surgical History Cardiovascular Surgical History: Reports: Coronary Artery Stent, Pacer GI Surgical History: Reports: Colonoscopy Musculoskeletal Surgical History: Reports: Other (See Below) Other Musculoskeletal Surgeries/Procedures:: Lt knee surgery Social & Family History - Family History Family Medical History: Noncontributory HEENT: Reports: Impaired Vision Musculoskeletal: Reports: Arthritis Neurological: Reports: Cerebral Aneurysms Other Neurological Family History: sister Endocrine/Metabolic: Reports: Diabetes, Type I Other Endocrine/Metabolic Family History: mother - Tobacco Use Smoking Status *Q: Current Every Day Smoker Years of Tobacco use: 40 Packs/Tins Daily: 1 Used Tobacco, but Quit: No Tobacco Use Comment: cost of smoking cessation meds was why stopped taking about 1 year ago after AMI Second Hand Smoke Exposure: No - Caffeine Use Caffeine Use: Reports: Coffee Caffeine Use Comment: daily - Alcohol Use Days Per Week of Alcohol Use: 1 Number of Drinks Per Day: 6 Total Drinks Per Week: 6 - Recreational Drug Use Recreational Drug Use: No - Living Situation & Occupation Living situation: Reports: with Family (Sister) H&P Review of Systems - Review of Systems: General: Reports: No Symptoms HEENT: Reports: Hearing Changes (Ringing) Pulmonary: Reports: Shortness of Breath, Wheezing Cardiovascular: Reports: Palpitations Gastrointestinal: Reports: No Symptoms Genitourinary: Reports: Retention Musculoskeletal: Reports: Back Pain, Joint Pain Skin: Reports: No Symptoms Psychiatric: Reports: No Symptoms Neurological: Reports: Numbness (Feet) Exam - Exam Exam: See Below - Vital Signs Vital Signs: Last Vital Signs Temp 97.0 F 07/08/17 09:22 Pulse 63 07/08/17 11:34 Resp 12 07/08/17 11:34 BP 143/90 H 07/08/17 11:34 Pulse Ox 94 L 07/08/17 11:34 Weight: 52.163 kg - Exam Quality Assessment: Supplemental Oxygen General: Alert, Oriented, Cooperative HEENT: Conjunctiva Clear, EOMI, Hearing Intact, Pupils Equal, Pupils Reactive Neck: Supple, Trachea Midline Lungs: Decreased Breath Sounds, Wheezing Cardiovascular: Other (Inadequate Cardiac exam) GI/Abdominal Exam: Normal Bowel Sounds, Soft, Non-Tender, No Organomegaly, No Distention, No Abnormal Bruit, No Mass (Male) Exam: Deferred Rectal (Males) Exam: Deferred Back Exam: Normal Inspection Extremities: Normal Inspection, Normal Range of Motion, Non-Tender, No Pedal Edema Skin: Warm, Dry, Intact Neurological: Cranial Nerves Intact, Strength Equal Bilateral Neuro Extensive - Mental Status: Alert, Oriented x3, Normal Mood/Affect, Normal Cognition, Memory Intact Neuro Extensive - Motor, Sensory, Reflexes: CN II-XII Intact, Normal Gait, Abnormal Sensation (Plantar surface. Most notable right side), Abnormal Pin Prick (Right plantar) Psychiatric: Alert, Normal Affect, Normal Mood - Patient Data Result Diagrams: 07/08/17 09:25 07/08/17 09:25 *Q Meaningful Use (ADM) - VTE *Q VTE Criteria *Q: - Stroke *Q Stroke Criteria *Q: - AMI *Q AMI Criteria *Q: - Problem List (1) COPD exacerbation SNOMED Code(s): 145428577, [id number] ICD Code: J44.1 - CHRONIC OBSTRUCTIVE PULMONARY DISEASE W (ACUTE) EXACERBATION Status: Acute Current Visit: Yes Problem List Initiated/Reviewed/Updated: Yes Orders Last 24hrs: Active Orders 24 hr Category Date Time Status Antiembolic Devices [RC] DAILY Care 07/08/17 12:04 Active Height and Weight [RC] 04 Care 07/08/17 12:03 Active Intake and Output [RC] 04,16 Care 07/08/17 12:03 Active Oxygen Therapy [RC] PRN Care 07/08/17 12:03 Active RT Aerosol Therapy [RC] ASDIRECTED Care 07/08/17 12:09 Active Up With Assistance [RC] ASDIRECTED Care 07/08/17 12:03 Active Up ad Tita [RC] ASDIRECTED Care 07/08/17 12:03 Active VTE/DVT Education [RC] DAILY Care 07/08/17 12:03 Active Vital Signs [RC] Q4HR Care 07/08/17 12:03 Active Consult to Case Management [CONS] Routine Cons 07/08/17 12:[address] Light Servicer Helper [CONS] Routine Cons 07/08/17 12:09 Active Consult to Spiritual Care [CONS] Routine Cons 07/08/17 12:09 Active OT Evaluation and Treatment [CONS] Routine Cons 07/08/17 12:09 Active PT Evaluation and Treatment [CONS] Routine Cons 07/08/17 12:09 Active Respiratory Care Assess and Treatment [CONS] Routine Cons 07/08/17 12:09 Active Regular Diet [DIET] Diet 07/08/17 Lunch Active BASIC METABOLIC PANEL,BMP [CHEM] AM Lab 07/09/17 05:11 Ordered BASIC METABOLIC PANEL,BMP [CHEM] AM Lab 07/10/17 05:11 Ordered BASIC METABOLIC PANEL,BMP [CHEM] AM Lab 07/11/17 05:11 Ordered C-REACTIVE PROTEIN [CHEM] AM Lab 07/09/17 05:11 Ordered C-REACTIVE PROTEIN [CHEM] AM Lab 07/10/17 05:11 Ordered C-REACTIVE PROTEIN [CHEM] AM Lab 07/11/17 05:11 Ordered CBC WITH AUTO DIFF [HEME] AM Lab 07/09/17 05:11 Ordered MAGNESIUM [CHEM] AM Lab 07/09/17 05:11 Ordered MAGNESIUM [CHEM] AM Lab 07/10/17 05:11 Ordered MAGNESIUM [CHEM] AM Lab 07/11/17 05:11 Ordered Acetaminophen [Tylenol] Med 07/08/17 12:03 Active 650 mg PO Q4H PRN Acetaminophen/HYDROcodone [[place] 325-5 MG] Med 07/08/17 12:03 Active 1 tab PO Q4H PRN Albuterol [Proventil HFA] Med 07/08/17 12:11 Active 0 gm INH Q4H PRN Albuterol/Ipratropium [DuoNeb 3.0-0.5 MG/3 ML] Med 07/08/17 12:03 Active 3 ml NEB Q4H PRN Amiodarone [Cordarone] Med 07/09/17 09:00 Active 100 mg PO DAILY Apixaban [Eliquis] Med 07/08/17 21:00 Active 5 mg PO BID Bisacodyl [Dulcolax] Med 07/08/17 12:03 Active 5 mg PO DAILY PRN Carvedilol [Coreg] Med 07/08/17 21:00 Active 12.5 mg PO BID Docusate Sodium [Colace] Med 07/08/17 12:03 Active 100 mg PO BID PRN Docusate Sodium/Sennosides [Senna Plus] Med 07/08/17 12:03 Active 1 tab PO BID PRN Furosemide [Lasix] Med 07/08/17 14:00 Active 40 mg PO BIDDIURETIC LORazepam [Ativan] Med 07/08/17 12:03 Active 1 mg IV Q6H PRN Lisinopril [Prinivil] Med 07/09/17 09:00 Active 5 mg PO DAILY Mometasone/Formoterol [Dulera 200-5 MCG] Med 07/08/17 21:00 Active 2 puff IH BID Morphine Med 07/08/17 12:03 Active 2 mg IVPUSH Q4H PRN Ondansetron [Zofran] Med 07/08/17 12:03 Active 4 mg IV Q6H PRN Pantoprazole [ProTONIX] Med 07/08/17 17:00 Active 40 mg PO BIDMEALS Patient's Own Medication [Ptom] Med 07/08/17 12:11 Active 0 each PO Q8H PRN Polyethylene Glycol 3350 [MiraLAX] Med 07/08/17 12:03 Active 17 gm PO DAILY PRN Pregabalin [Lyrica] Med 07/08/17 12:11 Active 150 mg PO Q8H PRN Promethazine [Phenergan] 12.5 mg Med 07/08/17 12:03 Active Sodium Chloride 0.9% [Normal Saline] 50 ml IV Q6H Rosuvastatin [Crestor] Med 07/09/17 09:00 Active 10 mg PO DAILY Spironolactone [Aldactone] Med 07/09/17 09:00 Active 25 mg PO DAILY Temazepam [Restoril] Med 07/08/17 21:00 Active 15 mg PO BEDTIME PRN Sequential Compression Device [OM.PC] Per Unit Routine Oth 07/08/17 12:03 Ordered Resuscitation Status Routine Resus Stat 07/08/17 12:03 Ordered Medication Orders Acetaminophen (Tylenol) 650 mg PO Q4H PRN PRN Reason: Pain (Mild 1-3)/fever Hydrocodone Bitart/Acetaminophen ([place] 325-5 Mg) 1 tab PO Q4H PRN PRN Reason: Pain (moderate 4-6) Last Admin: 07/08/17 12:53 Dose: 1 tab Albuterol (Proventil Hfa) 0 gm INH Q4H PRN PRN Reason: Dyspnea Albuterol/Ipratropium (Duoneb 3.0-0.5 Mg/3 Ml) 3 ml NEB Q4H PRN PRN Reason: Shortness Of Breath/wheezing Amiodarone HCl (Cordarone) 100 mg PO DAILY EDER Apixaban (Eliquis) 5 mg PO BID EDER Bisacodyl (Dulcolax) 5 mg PO DAILY PRN PRN Reason: Constipation Carvedilol (Coreg) 12.5 mg PO BID EDER Docusate Sodium (Colace) 100 mg PO BID PRN PRN Reason: Constipation Furosemide (Lasix) 40 mg PO BIDDIURETIC EDER Last Admin: 07/08/17 13:07 Dose: 40 mg Promethazine HCl 12.5 mg/ (Sodium Chloride) 50.5 mls @ 100 mls/hr IV Q6H PRN PRN Reason: Nausea/Vomiting Lisinopril (Prinivil) 5 mg PO DAILY EDER Lorazepam (Ativan) 1 mg IV Q6H PRN PRN Reason: Anxiety Mometasone Furoate/Formoterol Fumar (Dulera 200-5 Mcg) 2 puff IH BID EDER Morphine Sulfate (Morphine) 2 mg IVPUSH Q4H PRN PRN Reason: Other Stop: 07/09/17 12:04 Last Admin: 07/08/17 12:47 Dose: 2 mg Ondansetron HCl (Zofran) 4 mg IV Q6H PRN PRN Reason: Nausea/Vomiting Pantoprazole Sodium (Protonix) 40 mg PO BIDMEALS [facility] Metaxalone 800 Mg 0 each PO Q8H PRN PRN Reason: muscle spasm Polyethylene Glycol (Miralax) 17 gm PO DAILY PRN PRN Reason: Constipation Pregabalin (Lyrica) 150 mg PO Q8H PRN PRN Reason: Pain Rosuvastatin Calcium (Crestor) 10 mg PO DAILY [facility] Senna/Docusate Sodium (Senna Plus) 1 tab PO BID PRN PRN Reason: Constipation Sodium Chloride (Saline Flush) 10 ml FLUSH ASDIRECTED PRN PRN Reason: Keep Vein Open Last Admin: 07/08/17 09:38 Dose: 10 ml Spironolactone (Aldactone) 25 mg PO DAILY [facility]ER Temazepam (Restoril) 15 mg PO BEDTIME PRN PRN Reason: Sleep Assessment/Plan Comment:: Patient is a 62 yo male that presented to the ER with shortness of breath. Patient to feel clammy and short of breath Saturday07/05/17. The symptoms worsened through the weekend. The patient has a history of COPD, congestive heart failure and CAD. 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 He has smoked a pack of cigarettes a day for over 40 years. On physical exam he looks comfortable and in no acute distress. He is on supplemental oxygen now and he says that he uses oxygen at home. Plan: Routine Vitals every 6 hours Supplemental oxygen DVT prophylaxis Acute exacerbation of COPD: Treat with impratropium, inhaled corticosteroids, and albuterol treatment when needed Heart Disease: Monitor BNP: 1759 Continue amiodorone, apixaban, lisinopril and carvedilol treatment Look at previous records for echocardiogram to assess heart disease. If not done with in the last 6 months, perform echo <Sharon Jeff T - Last Filed: 07/08/17 19:02> H&P History of Present Illness - General Admit Problem/Dx: Admission Diagnosis/Problem Admission Diagnosis/Problem COPD, Severe chronic obstructive pulmonary disease Source of Information: Patient, Old Records, Provider, RN Notes Reviewed History Limitations: Reports: No Limitations, Respiratory Distress - History of Present Illness Initial Comments - Free Text/Narative: This is a 62 yo male who is older than his stated age with past medical history of Impaired Vision, CAD, HLD, Hx/o MS S/p Pacemaker Placement and Stents, Hx/o HF with Unknown EF, no data in [facility], Kidney Disease, Chronic Back Pain, OA/ DJD, Hx/o Substance Abuse, Nicotine Abuse who comes with complaints of worsening shortness of breath over the past week. His symptom is associated with chronic cough with occasional productive colored phlegm. He also admits to anterior chest tightness with difficulty breathing. He was just started on home portable oxygen about a week ago. He was instructed to use it at night. Last night even with oxygen on, he still could not get adequate air in. Patient carries a history of advanced COPD and chronic shortness of breath on exertion. He still smokes 1 pack a day for 40 years now. On presentation to the emergency department, he was observed extremely short of breath and moderately hypoxic with sats in the 70s. His initial workup in the emergency department shows a CBC remarkable for hemoglobin of 13.5, MCV of 102.4, neutrophils of 74.6%, lymphocyte of 10%, and monocytes of 12.7%. His ABG results shows a pH of 7.39, PCO2 53.1, PO2 55, bicarbonate 31.6 O2 sat 88.2% on 2 L nasal cannula. His chemistry is remarkable for carbon dioxide of 36, glucose of 124, CRP of 2.3, and pro-BNP of 1759. Troponin 1 is negative. EKG shows normal sinus rhythm with mild ST depression in the inferior leads and V3 to V6. His chest x-ray shows no acute abnormal findings. Patient is being admitted for acute on chronic COPD. He is full code. H&P Review of Systems - Review of Systems: Review Of Systems: See Below General: Denies: Fever, Chills, Fatigue HEENT: Reports: No Symptoms Pulmonary: Reports: Shortness of Breath, Wheezing, Cough, Sputum Cardiovascular: Reports: Palpitations, Dyspnea on Exertion, Lightheadedness Gastrointestinal: Denies: Abdominal Pain, Nausea, Vomiting Genitourinary: Reports: Retention Musculoskeletal: Reports: Back Pain, Joint Pain Skin: Denies: Cyanosis, Pallor, Rash Psychiatric: Denies: Depression, Anxiety Neurological: Reports: Numbness (on feet and chronic), Gait Disturbance. Denies : Confusion Hematologic/Lymphatic: Reports: No Symptoms Immunologic: Reports: No Symptoms Exam - Exam Exam: See Below - Vital Signs Vital Signs: Last Vital Signs Temp 36.1 C 07/08/17 09:22 Pulse 63 07/08/17 11:34 Resp 12 07/08/17 11:34 BP 143/90 H 07/08/17 11:34 Pulse Ox 91 L 07/08/17 13:57 - Exam Quality Assessment: Supplemental Oxygen General: Alert, Oriented, Cooperative, Mild Distress, Other (There is a mild increased work of breathing) HEENT: Conjunctiva Clear, EOMI, Hearing Intact, Mucosa Moist & [place], Nares Patent, Normal Nasal Septum, Pupils Equal, Pupils Reactive Neck: Supple, Trachea Midline, Full Range of Motion, Other (No acessory muscle use). No: JVD Lungs: Decreased Breath Sounds, Wheezing. No: Normal Respiratory Effort Cardiovascular: Other (Distant ) GI/Abdominal Exam: Normal Bowel Sounds, Soft, Non-Tender, No Organomegaly, No Distention (Male) Exam: Deferred Rectal (Males) Exam: Deferred Back Exam: Normal Inspection, Decreased Range of Motion, Muscle Spasm, Paraspinal Tenderness Extremities: Normal Inspection, Normal Range of Motion, Non-Tender, No Pedal Edema Peripheral Pulses: 2+: Posterior Tibial (L), Posterior Tibial (R), Dorsalis Pedis (L), Dorsalis Pedis (R) Skin: Warm, Dry, Intact Neuro Extensive - Mental Status: Oriented x3, Normal Cognition, Memory Intact Neuro Extensive - Motor, Sensory, Reflexes: CN II-XII Intact (limited but grossly intact), Abnormal Sensation - Patient Data Result Diagrams: 07/08/17 09:25 07/08/17 09:25 *Q Meaningful Use (ADM) - VTE *Q VTE Criteria *Q: - Stroke *Q Stroke Criteria *Q: - AMI *Q AMI Criteria *Q: Problem List Initiated/Reviewed/Updated: Yes Orders Last 24hrs: Active Orders 24 hr Category Date Time Status Antiembolic Devices [RC] DAILY Care 07/08/17 12:04 Active Height and Weight [RC] 04 Care 07/08/17 12:03 Active Intake and Output [RC] 04,16 Care 07/08/17 12:03 Active Oxygen Therapy [RC] PRN Care 07/08/17 12:03 Active RT Aerosol Therapy [RC] ASDIRECTED Care 07/08/17 12:09 Active Up With Assistance [RC] ASDIRECTED Care 07/08/17 12:03 Active Up ad Tita [RC] ASDIRECTED Care 07/08/17 12:03 Active VTE/DVT Education [RC] DAILY Care 07/08/17 12:03 Active Vital Signs [RC] Q4HR Care 07/08/17 12:03 Active Consult to Case Management [CONS] Routine Cons 07/08/17 12:[address] Light Servicer Helper [CONS] Routine Cons 07/08/17 12:09 Active Consult to Spiritual Care [CONS] Routine Cons 07/08/17 12:09 Active OT Evaluation and Treatment [CONS] Routine Cons 07/08/17 12:09 Active PT Evaluation and Treatment [CONS] Routine Cons 07/08/17 12:09 Active Respiratory Care Assess and Treatment [CONS] Routine Cons 07/08/17 12:09 Active Heart Healthy Diet [DIET] Diet 07/08/17 Dinner Active Sodium Restricted Diet [DIET] Diet 07/08/17 Dinner Active Echo Comp wo Cont [US] Routine Exams 07/08/17 14:14 Stop Req BASIC METABOLIC PANEL,BMP [CHEM] AM Lab 07/09/17 05:11 Ordered BASIC METABOLIC PANEL,BMP [CHEM] AM Lab 07/10/17 05:11 Ordered BASIC METABOLIC PANEL,BMP [CHEM] AM Lab 07/11/17 05:11 Ordered C-REACTIVE PROTEIN [CHEM] AM Lab 07/09/17 05:11 Ordered C-REACTIVE PROTEIN [CHEM] AM Lab 07/10/17 05:11 Ordered C-REACTIVE PROTEIN [CHEM] AM Lab 07/11/17 05:11 Ordered CBC WITH AUTO DIFF [HEME] AM Lab 07/09/17 05:11 Ordered MAGNESIUM [CHEM] AM Lab 07/09/17 05:11 Ordered MAGNESIUM [CHEM] AM Lab 07/10/17 05:11 Ordered MAGNESIUM [CHEM] AM Lab 07/11/17 05:11 Ordered PRO B-TYPE NATRIUR PEPT,BNPPRO [CHEM] Routine Lab 07/09/17 05:11 Ordered Acetaminophen [Tylenol] Med 07/08/17 12:03 Active 650 mg PO Q4H PRN Acetaminophen/HYDROcodone [[place] 325-5 MG] Med 07/08/17 12:03 Active 1 tab PO Q4H PRN Albuterol [Proventil HFA] Med 07/08/17 12:11 Active 0 gm INH Q4H PRN Albuterol/Ipratropium [DuoNeb 3.0-0.5 MG/3 ML] Med 07/08/17 12:03 Active 3 ml NEB Q4H PRN Amiodarone [Cordarone] Med 07/09/17 09:00 Active 100 mg PO DAILY Apixaban [Eliquis] Med 07/08/17 21:00 Active 5 mg PO BID Azithromycin [Zithromax] 250 mg Med 07/08/17 15:00 Active Sodium Chloride 0.9% [Normal Saline] 250 ml IV Q24H Bisacodyl [Dulcolax] Med 07/08/17 12:03 Active 5 mg PO DAILY PRN Carvedilol [Coreg] Med 07/08/17 21:00 Active 12.5 mg PO BID Docusate Sodium [Colace] Med 07/08/17 12:03 Active 100 mg PO BID PRN Docusate Sodium/Sennosides [Senna Plus] Med 07/08/17 12:03 Active 1 tab PO BID PRN Furosemide [Lasix] Med 07/08/17 14:00 Active 40 mg PO BIDDIURETIC LORazepam [Ativan] Med 07/08/17 12:03 Active 1 mg IV Q6H PRN Lisinopril [Prinivil] Med 07/09/17 09:00 Active 5 mg PO DAILY Magnesium Oxide Med 07/08/17 21:00 Active 400 mg PO BID Magnesium Rep Pharmacy to Dose [Pharmacy to Dose - Med 07/08/17 14:15 Active Magnesium Replacement] 1 dose .XX ASDIRECTED Metoprolol Tartrate [Lopressor] Med 07/08/17 14:12 Active 5 mg IVPUSH Q4H PRN Mometasone/Formoterol [Dulera 200-5 MCG] Med 07/08/17 21:00 Active 2 puff IH BID Morphine Med 07/08/17 12:03 Active 2 mg IVPUSH Q4H PRN Nicotine [Habitrol] Med 07/08/17 18:00 Active 21 mg TRDERM DAILY@1800 Ondansetron [Zofran] Med 07/08/17 12:03 Active 4 mg IV Q6H PRN Pantoprazole [ProTONIX] Med 07/08/17 17:00 Active 40 mg PO BIDMEALS Patient's Own Medication [Ptom] Med 07/08/17 12:11 Active 0 each PO Q8H PRN Polyethylene Glycol 3350 [MiraLAX] Med 07/08/17 12:03 Active 17 gm PO DAILY PRN Potassium Rep Pharmacy to Dose [Pharmacy to Dose - Med 07/08/17 14:15 Active Potassium Replacement] 1 dose .XX ASDIRECTED Pregabalin [Lyrica] Med 07/08/17 12:11 Active 150 mg PO Q8H PRN Promethazine [Phenergan] 12.5 mg Med 07/08/17 12:03 Active Sodium Chloride 0.9% [Normal Saline] 50 ml IV Q6H Remove Patch Med 07/09/17 18:00 Active 1 ea TRDERM DAILY@1800 Remove Patch Med 07/11/17 16:30 Active 1 ea TRDERM Q72H Rosuvastatin [Crestor] Med 07/09/17 09:00 Active 10 mg PO DAILY Spironolactone [Aldactone] Med 07/09/17 09:00 Active 25 mg PO DAILY Temazepam [Restoril] Med 07/08/17 21:00 Active 15 mg PO BEDTIME PRN fentaNYL [Duragesic] Med 07/08/17 16:30 Active 12 mcg TRDERM Q72H hydrALAZINE [Apresoline] Med 07/08/17 14:12 Active 20 mg IVPUSH Q4H PRN methylPREDNISolone Sod Succ [Solu-MEDROL] Med 07/08/17 17:30 Active 125 mg IVPUSH Q8H Sequential Compression Device [OM.PC] Per Unit Routine Oth 07/08/17 12:03 Ordered Resuscitation Status Routine Resus Stat 07/08/17 12:03 Ordered Medication Orders Acetaminophen (Tylenol) 650 mg PO Q4H PRN PRN Reason: Pain (Mild 1-3)/fever Hydrocodone Bitart/Acetaminophen ([place] 325-5 Mg) 1 tab PO Q4H PRN PRN Reason: Pain (moderate 4-6) Last Admin: 07/08/17 16:22 Dose: 1 tab Admin: 07/08/17 12:53 Dose: 1 tab Albuterol (Proventil Hfa) 0 gm INH Q4H PRN PRN Reason: Dyspnea Albuterol/Ipratropium (Duoneb 3.0-0.5 Mg/3 Ml) 3 ml NEB Q4H PRN PRN Reason: Shortness Of Breath/wheezing Amiodarone HCl (Cordarone) 100 mg PO DAILY EDER Apixaban (Eliquis) 5 mg PO BID EDER Bisacodyl (Dulcolax) 5 mg PO DAILY PRN PRN Reason: Constipation Carvedilol (Coreg) 12.5 mg PO BID EDER Docusate Sodium (Colace) 100 mg PO BID PRN PRN Reason: Constipation Fentanyl (Duragesic) 12 mcg TRDERM Q72H EDER Furosemide (Lasix) 40 mg PO BIDDIURETIC EDER Last Admin: 07/08/17 13:07 Dose: 40 mg Hydralazine HCl (Apresoline) 20 mg IVPUSH Q4H PRN PRN Reason: Hypertension Promethazine HCl 12.5 mg/ (Sodium Chloride) 50.5 mls @ 100 mls/hr IV Q6H PRN PRN Reason: Nausea/Vomiting Azithromycin 250 mg/ Sodium (Chloride) 250 mls @ 250 mls/hr IV Q24H [facility] Last Admin: 07/08/17 15:35 Dose: 250 mls/hr Lisinopril (Prinivil) 5 mg PO DAILY [facility] Lorazepam (Ativan) 1 mg IV Q6H PRN PRN Reason: Anxiety Magnesium Oxide (Magnesium Oxide) 400 mg PO BID [facility] Magnesium Sulfate (Pharmacy To Dose - Magnesium Replacement) 1 dose .XX ASDIRECTED [facility] Methylprednisolone Sodium Succinate (Solu-Medrol) 125 mg IVPUSH Q8H [facility] Last Admin: 07/08/17 16:26 Dose: 125 mg Metoprolol Tartrate (Lopressor) 5 mg IVPUSH Q4H PRN PRN Reason: Tachycardia Miscellaneous Information (Remove Patch) 1 ea TRDERM Q72H [facility] Miscellaneous Information (Remove Patch) 1 ea TRDERM DAILY@1800 [facility] Mometasone Furoate/Formoterol Fumar (Dulera 200-5 Mcg) 2 puff IH BID [facility] Morphine Sulfate (Morphine) 2 mg IVPUSH Q4H PRN PRN Reason: Other Stop: 07/09/17 12:04 Last Admin: 07/08/17 16:24 Dose: 2 mg Admin: 07/08/17 12:47 Dose: 2 mg Nicotine (Habitrol) 21 mg TRDERM DAILY@1800 [facility] Ondansetron HCl (Zofran) 4 mg IV Q6H PRN PRN Reason: Nausea/Vomiting Pantoprazole Sodium (Protonix) 40 mg PO BIDMEALS [facility] Last Admin: 07/08/17 16:26 Dose: 40 mg Metaxalone 800 Mg 0 each PO Q8H PRN PRN Reason: muscle spasm Polyethylene Glycol (Miralax) 17 gm PO DAILY PRN PRN Reason: Constipation Potassium Chloride (Pharmacy To Dose - Potassium Replacement) 1 dose .XX ASDIRECTED [facility] Pregabalin (Lyrica) 150 mg PO Q8H PRN PRN Reason: Pain Last Admin: 07/08/17 15:37 Dose: 150 mg Rosuvastatin Calcium (Crestor) 10 mg PO DAILY [facility] Senna/Docusate Sodium (Senna Plus) 1 tab PO BID PRN PRN Reason: Constipation Sodium Chloride (Saline Flush) 10 ml FLUSH ASDIRECTED PRN PRN Reason: Keep Vein Open Last Admin: 07/08/17 09:38 Dose: 10 ml Spironolactone (Aldactone) 25 mg PO DAILY [facility] Temazepam (Restoril) 15 mg PO BEDTIME PRN PRN Reason: Sleep Assessment/Plan Comment:: Assessment/Plan: Acute: COPD Exacerbation - Risk Factors: Advanced COPD and Nicotine Abuse - He still smokes 1ppd - IV Steroids, Scheduled and PRN Bronchodilators, Mag Supplement, IV Azithmormycin, Supplemental O2 - Decongestant/Expectorant - Sputum Cx/Sx Hypoxemia - Has chronic SOB on Exertion - By his looks, he has advanced COPD - It appears he may have hypercapnea as well with increased CO2 level of 36 - His 50/50 COPD based on his ABG - He is currently on 3.5 L NC sating 91%; he was in the 70s on presentation to ED - Treat underlying cause above Elevated Pro-BNP Level - 1759 - This is likely induced by his COPD Exacerbation - Could not appreciate volume overload on clinical exam and imaging study - Heart healthy diet - Will obtain his most recent 2D echo, if > 6 months will get a new one - Follow up level Nicotine Abuse - Still smokes 1ppd - Nicotine Patch Daily - Counseled on smoking cessation Chronic: Impaired Vision CAD HLD Hx/o MS S/p Pacemaker Placement and Stents Advanced COPD SOB on Exertion Hxo HF with Unknown EF, no data in [employer] Kidney Disease Back Pain OA/DJD Hx/o Substance Abuse Nicotine Abuse Plan: Admit to Med-Surg w/ PRN Pulse-Ox Routine AM Labs Resume Home Medications PRN Medications PT/OT/RT consult SW/CM for d/c planning Additional orders as above Code status: 1
[2017-07-08] MEDS ORDERED: Azithromycin 250 MG in Sodium Chloride 0.9% 250 ML IV ONE (14:11)
[2017-07-08] MEDS ORDERED: hydrALAZINE 20 MG/ML SDV IVPUSH PRN (14:12)
[2017-07-08] MEDS ORDERED: Metoprolol Tartrate 5 MG/5 ML SDV IVPUSH PRN (14:12)
[2017-07-08] MEDS ORDERED: Azithromycin 250 MG in Sodium Chloride 0.9% 250 ML IV SCH (15:00)
[2017-07-08] MEDS: Azithromycin 250 MG in Sodium Chloride 0.9% 250 ML IV SCH (15:35)
[2017-07-08] MEDS: methylPREDNISolone Sodium Succinate 125 MG/2 ML SDV IVPUSH SCH ×2 (16:26→18:13)
[2017-07-08] MEDS: Pantoprazole 40 MG Tab.CR PO SCH (16:26)
[2017-07-08] MEDS ORDERED: fentaNYL 12 MCG/HR Transdermal Patch TRDERM SCH (16:30)
[2017-07-08] MEDS: Albuterol/Ipratropium 3.0-0.5 MG/3 ML Neb Soln NEB PRN ×2 (17:58→20:06)
[2017-07-08] MEDS: Nicotine 21 MG/24 Hr Patch TRDERM SCH (18:42)
[2017-07-08] MEDS: Formoterol/Mometasone 200-5 MCG 8.8 GM Inhaler IH SCH (20:06)
[2017-07-08] MEDS: Magnesium Oxide 400 MG Tab PO SCH (20:58)
[2017-07-08] MEDS: Apixaban 5 MG Tab PO SCH (20:58)
[2017-07-08] MEDS: Temazepam 15 MG Cap PO PRN (21:04)
[2017-07-08] MEDS: Carvedilol 12.5 MG Tab PO SCH (21:05)
[2017-07-09] MEDS: methylPREDNISolone Sodium Succinate 125 MG/2 ML SDV IVPUSH SCH ×3 (01:19→17:17)
[2017-07-09] MEDS: Acetaminophen/HYDROcodone 325-5 MG Tab PO PRN ×3 (01:43→15:34)
[2017-07-09] MEDS: Furosemide 40 MG Tab PO SCH ×2 (06:11→15:20)
[2017-07-09] MEDS: Pantoprazole 40 MG Tab.CR PO SCH ×2 (06:11→17:17)
[2017-07-09] MEDS: Albuterol/Ipratropium 3.0-0.5 MG/3 ML Neb Soln NEB PRN ×4 (08:58→19:53)
[2017-07-09] MEDS: Formoterol/Mometasone 200-5 MCG 8.8 GM Inhaler IH SCH ×2 (08:59→20:00)
[2017-07-09] MEDS: Apixaban 5 MG Tab PO SCH ×2 (09:35→20:45)
[2017-07-09] MEDS: Carvedilol 12.5 MG Tab PO SCH ×2 (09:35→21:02)
[2017-07-09] MEDS: Lisinopril 5 MG Tab PO SCH (09:36)
[2017-07-09] MEDS: Magnesium Oxide 400 MG Tab PO SCH ×2 (09:36→20:45)
[2017-07-09] MEDS: Spironolactone 25 MG Tab PO SCH (09:36)
[2017-07-09] MEDS: Amiodarone 200 MG Tab PO SCH (09:36)
[2017-07-09] MEDS: Rosuvastatin 10 MG Tab PO SCH (09:36)
--- NOTE | 2017-07-09 09:58 | PCM.PN ---
<Ashwini Sanches - Last Filed: 07/09/17 09:45> - General Info Date of Service: 07/09/17 Admission Dx/Problem (Free Text): Admission Diagnosis/Problem Admission Diagnosis/Problem COPD, Severe chronic obstructive pulmonary disease Functional Status: Reports: Other (Patient reports pain from his back and knee) Pain Score: 6 - Review of Systems General: Reports: No Symptoms HEENT: Reports: No Symptoms Pulmonary: Reports: Shortness of Breath (Became SOB during the night but said resolved), Cough, Sputum Cardiovascular: Reports: No Symptoms Gastrointestinal: Reports: No Symptoms Genitourinary: Reports: Frequency, Retention Musculoskeletal: Reports: Back Pain, Joint Pain Skin: Reports: No Symptoms Neurological: Reports: No Symptoms Psychiatric: Reports: No Symptoms - Patient Data Vitals - Most Recent: Last Vital Signs Temp 97.5 F 07/09/17 08:04 Pulse 60 07/09/17 09:35 Resp 16 07/09/17 02:34 BP 126/65 07/09/17 09:36 Pulse Ox 93 L 07/09/17 08:59 Weight - Most Recent: 52.299 kg I&O - Last 24 Hours: Intake & Output 07/08/17 07/09/17 07/09/17 22:59 06:59 14:59 Intake Total 490 700 Output Total 400 900 Balance 90 -200 Lab Results Last 24 Hours: Laboratory Results - last 24 hr 07/09/17 07/09/17 Range/Units 06:05 06:05 WBC 8.17 (4.23-9.07) K/mm3 RBC 4.09 L (4.63-6.08) M/mm3 Hgb 13.4 L (13.7-17.5) gm/L Hct 40.6 (40.1-51.0) % MCV 99.3 H (79.0-92.2) fl MCH 32.8 H (25.7-32.2) pg MCHC 33.0 (32.2-35.5) g/dl RDW Std Deviation 54.0 H (35.1-43.9) fL Plt Count 187 (163-337) K/mm3 MPV 11.1 (9.4-12.3) fl Neut % (Auto) 91.2 H (34.0-67.9) % Lymph % (Auto) 6.4 L (21.8-53.1) % [place] % (Auto) 2.2 L (5.3-12.2) % Eos % (Auto) 0 L (0.8-7.0) Baso % (Auto) 0.0 L (0.1-1.2) % Neut # (Auto) 7.45 H (1.78-5.38) K/mm3 Lymph # (Auto) 0.52 L (1.32-3.57) K/mm3 [place] # (Auto) 0.18 L (0.30-0.82) K/mm3 Eos # (Auto) 0.00 L (0.04-0.54) K/mm3 Baso # (Auto) 0.00 L (0.01-0.08) K/mm3 Manual Slide Review Abnormal smear Sodium 137 (136-145) mEq/L Potassium 4.3 (3.5-5.1) mEq/L Chloride 96 L (98-107) mEq/L Carbon Dioxide 34 H (21-32) mEq/L Anion Gap 11.3 (5-15) BUN 19 H (7-18) mg/dL Creatinine 1.0 (0.7-1.3) mg/dL Est Cr Clr Drug Dosing 55.93 mL/min Estimated GFR (MDRD) > 60 (>60) mL/min BUN/Creatinine Ratio 19.0 H (14-18) Glucose 143 H (80-115) mg/dL Calcium 9.1 (8.5-10.1) mg/dL Magnesium 2.0 (1.8-2.4) mg/dl C-Reactive Protein 1.6 H* (<1.0) mg/dL NT-Pro-B Natriuret Pep 1924 H (0-125) pg/mL Med Orders - Current: Current Medications Acetaminophen (Tylenol) 650 mg PO Q4H PRN PRN Reason: Pain (Mild 1-3)/fever Hydrocodone Bitart/Acetaminophen ([place] 325-5 Mg) 1 tab PO Q4H PRN PRN Reason: Pain (moderate 4-6) Last Admin: 07/09/17 06:13 Dose: 1 tab Albuterol (Proventil Hfa) 0 gm INH Q4H PRN PRN Reason: Dyspnea Albuterol/Ipratropium (Duoneb 3.0-0.5 Mg/3 Ml) 3 ml NEB Q4H PRN PRN Reason: Shortness Of Breath/wheezing Last Admin: 07/09/17 08:58 Dose: 3 ml Amiodarone HCl (Cordarone) 100 mg PO DAILY [facility] Last Admin: 07/09/17 09:36 Dose: 100 mg Apixaban (Eliquis) 5 mg PO BID [facility] Last Admin: 07/09/17 09:35 Dose: 5 mg Bisacodyl (Dulcolax) 5 mg PO DAILY PRN PRN Reason: Constipation Carvedilol (Coreg) 12.5 mg PO BID [facility] Last Admin: 07/09/17 09:35 Dose: Not Given Docusate Sodium (Colace) 100 mg PO BID PRN PRN Reason: Constipation Fentanyl (Duragesic) 12 mcg TRDERM Q72H [facility] Last Admin: 07/08/17 18:43 Dose: 12 mcg Furosemide (Lasix) 40 mg PO BIDDIURETIC [facility] Last Admin: 07/09/17 06:11 Dose: 40 mg Hydralazine HCl (Apresoline) 20 mg IVPUSH Q4H PRN PRN Reason: Hypertension Promethazine HCl 12.5 mg/ (Sodium Chloride) 50.5 mls @ 100 mls/hr IV Q6H PRN PRN Reason: Nausea/Vomiting Azithromycin 250 mg/ Sodium (Chloride) 250 mls @ 250 mls/hr IV Q24H [facility] Last Admin: 07/08/17 15:35 Dose: 250 mls/hr Lisinopril (Prinivil) 5 mg PO DAILY [facility] Last Admin: 07/09/17 09:36 Dose: 5 mg Lorazepam (Ativan) 1 mg IV Q6H PRN PRN Reason: Anxiety Magnesium Oxide (Magnesium Oxide) 400 mg PO BID [facility] Last Admin: 07/09/17 09:36 Dose: 400 mg Magnesium Sulfate (Pharmacy To Dose - Magnesium Replacement) 1 dose .XX ASDIRECTED [facility] Methylprednisolone Sodium Succinate (Solu-Medrol) 125 mg IVPUSH Q8H [facility] Last Admin: 07/09/17 09:35 Dose: 125 mg Metoprolol Tartrate (Lopressor) 5 mg IVPUSH Q4H PRN PRN Reason: Tachycardia Miscellaneous Information (Remove Patch) 1 ea TRDERM Q72H [facility] Miscellaneous Information (Remove Patch) 1 ea TRDERM DAILY@1800 [facility] Mometasone Furoate/Formoterol Fumar (Dulera 200-5 Mcg) 2 puff IH BID [facility] Last Admin: 07/09/17 08:59 Dose: 2 puff Morphine Sulfate (Morphine) 2 mg IVPUSH Q4H PRN PRN Reason: Other Stop: 07/09/17 12:04 Last Admin: 07/08/17 16:24 Dose: 2 mg Nicotine (Habitrol) 21 mg TRDERM DAILY@1800 [facility] Last Admin: 07/08/17 18:42 Dose: 21 mg Ondansetron HCl (Zofran) 4 mg IV Q6H PRN PRN Reason: Nausea/Vomiting Pantoprazole Sodium (Protonix) 40 mg PO BIDMEALS [facility] Last Admin: 07/09/17 06:11 Dose: 40 mg Metaxalone 800 Mg 0 each PO Q8H PRN PRN Reason: muscle spasm Polyethylene Glycol (Miralax) 17 gm PO DAILY PRN PRN Reason: Constipation Potassium Chloride (Pharmacy To Dose - Potassium Replacement) 1 dose .XX ASDIRECTED [facility] Pregabalin (Lyrica) 150 mg PO Q8H PRN PRN Reason: Pain Last Admin: 07/08/17 15:37 Dose: 150 mg Rosuvastatin Calcium (Crestor) 10 mg PO DAILY [facility] Last Admin: 07/09/17 09:36 Dose: 10 mg Senna/Docusate Sodium (Senna Plus) 1 tab PO BID PRN PRN Reason: Constipation Sodium Chloride (Saline Flush) 10 ml FLUSH ASDIRECTED PRN PRN Reason: Keep Vein Open Last Admin: 07/08/17 09:38 Dose: 10 ml Spironolactone (Aldactone) 25 mg PO DAILY [facility] Last Admin: 07/09/17 09:36 Dose: 25 mg Temazepam (Restoril) 15 mg PO BEDTIME PRN PRN Reason: Sleep Last Admin: 07/08/17 21:04 Dose: 15 mg Discontinued Medications Albuterol (Proventil Neb Soln) 2.5 mg NEB ONETIME ONE Stop: 07/08/17 10:13 Last Admin: 07/08/17 10:19 Dose: 2.5 mg Albuterol/Ipratropium (Duoneb 3.0-0.5 Mg/3 Ml) 3 ml NEB ONETIME ONE Stop: 07/08/17 09:22 Last Admin: 07/08/17 09:27 Dose: 3 ml Albuterol/Ipratropium (Duoneb 3.0-0.5 Mg/3 Ml) Confirm Administered Dose 3 ml .ROUTE .STK-MED ONE Stop: 07/08/17 09:28 Last Admin: 07/08/17 09:38 Dose: Not Given Hydromorphone HCl (Dilaudid) 0.5 mg IVPUSH ONETIME ONE Stop: 07/08/17 09:28 Last Admin: 07/08/17 09:35 Dose: 0.5 mg Hydromorphone HCl (Dilaudid) 0.5 mg IVPUSH ONETIME ONE Stop: 07/08/17 10:13 Last Admin: 07/08/17 10:36 Dose: 0.5 mg Azithromycin 250 mg/ Sodium (Chloride) 250 mls @ 250 mls/hr IV ONETIME ONE Stop: 07/08/17 15:10 Last Admin: 07/08/17 19:50 Dose: Not Given Azithromycin 250 mg/ Sodium (Chloride) 250 mls @ 250 mls/hr IV Q24H [facility] Methylprednisolone Sodium Succinate (Solu-Medrol) 125 mg IVPUSH ONETIME ONE Stop: 07/08/17 09:22 Last Admin: 07/08/17 09:37 Dose: 125 mg Non-Formulary Medication (Hydrocodone/Acetaminophen) 1 tab PO Q6H PRN PRN Reason: Pain Pneumococcal Polyvalent Vaccine (Pneumovax 23) 0.5 ml IM .ONCE ONE Stop: 07/08/17 11:34 - Exam Quality Assessment: Supplemental Oxygen General: Alert, Oriented, Cooperative Lungs: Decreased Breath Sounds, Wheezing Cardiovascular: Other (Inadequate assessment) GI/Abdominal Exam: Normal Bowel Sounds, Distended, Tender (Right upper quadrant) (Male) Exam: Deferred Back Exam: Normal Inspection Skin: Warm, Dry, Intact Neurological: No New Focal Deficit Psy/Mental Status: Alert, Normal Affect, Normal Mood - Problem List & Annotations (1) COPD exacerbation SNOMED Code(s): 115723790, 561437977 Code(s): J44.1 - CHRONIC OBSTRUCTIVE PULMONARY DISEASE W (ACUTE) EXACERBATION Status: Acute Current Visit: Yes - Problem List Review Problem List Initiated/Reviewed/Updated: Yes - Assessment Assessment:: Patient reports experiencing shortness of breath and chest tightness during the night. He had an episode of coughing which produced a yellowish sputum. The shortness of breath resolved and he was able to continue sleeping. He otherwise reports no new symptoms and says he is feeling better from the previous day. Examination of his lungs reveal wheezing throughout the lung cloud. He has normal bowel sounds. He reports tenderness on deep palpitation of his right upper quadrant. No hepatosplenomegaly noted on exam. He continues to report that he is having difficult emptying his bladder and reports increased pressure on palpitation of the suprapubic area. His BNP has increased since yesterday from 1729 to 1924. CRP is down from 2.3 to 1.6. - Plan Plan:: Plan: Continue oxygen supplementation Routine AM Labs Resume Home Medications PT/OT/RT consult Possible ultrasound to measure bladder volume and straight catheter to empty Consult Dr. Jeff on possible ultrasound of right upper quadrant <Sharon Jeff - Last Filed: 07/09/17 17:34> - General Info Subjective Update: Follow Up Functional Status: Reports: Tolerating Diet, Urinating, Other. Denies: Pain Controlled - Review of Systems General: Reports: Fatigue. Denies: Fever, Malaise, Chills HEENT: Reports: No Symptoms Pulmonary: Reports: Shortness of Breath, Cough, Sputum Cardiovascular: Reports: Dyspnea on Exertion, Other (chest tightness) Gastrointestinal: Denies: Abdominal Pain, Nausea, Vomiting Genitourinary: Reports: Frequency, Retention Musculoskeletal: Reports: Back Pain, Joint Pain Skin: Denies: Cyanosis Neurological: Reports: Gait Disturbance. Denies: Confusion Psychiatric: Denies: Depression, Anxiety Systems Review Comment:: No significant overnight or acute issues. His pain is not fully controlled. He is asking pain medications round the clock. His respiratory issues is about the same. - Patient Data Vitals - Most Recent: Last Vital Signs Temp 36.7 C 07/09/17 13:03 Pulse 101 H 07/09/17 13:03 Resp 20 07/09/17 13:03 BP 116/53 L 07/09/17 13:03 Pulse Ox 97 07/09/17 16:26 I&O - Last 24 Hours: Intake & Output 07/09/17 07/09/17 07/09/17 06:59 14:59 22:59 Intake Total 700 430 360 Output Total 900 1100 Balance -200 -670 360 Lab Results Last 24 Hours: Laboratory Results - last 24 hr 07/09/17 07/09/17 Range/Units 06:05 06:05 WBC 8.17 (4.23-9.07) K/mm3 RBC 4.09 L (4.63-6.08) M/mm3 Hgb 13.4 L (13.7-17.5) gm/L Hct 40.6 (40.1-51.0) % MCV 99.3 H (79.0-92.2) fl MCH 32.8 H (25.7-32.2) pg MCHC 33.0 (32.2-35.5) g/dl RDW Std Deviation 54.0 H (35.1-43.9) fL Plt Count 187 (163-337) K/mm3 MPV 11.1 (9.4-12.3) fl Neut % (Auto) 91.2 H (34.0-67.9) % Lymph % (Auto) 6.4 L (21.8-53.1) % [place] % (Auto) 2.2 L (5.3-12.2) % Eos % (Auto) 0 L (0.8-7.0) Baso % (Auto) 0.0 L (0.1-1.2) % Neut # (Auto) 7.45 H (1.78-5.38) K/mm3 Lymph # (Auto) 0.52 L (1.32-3.57) K/mm3 [place] # (Auto) 0.18 L (0.30-0.82) K/mm3 Eos # (Auto) 0.00 L (0.04-0.54) K/mm3 Baso # (Auto) 0.00 L (0.01-0.08) K/mm3 Manual Slide Review Abnormal smear Sodium 137 (136-145) mEq/L Potassium 4.3 (3.5-5.1) mEq/L Chloride 96 L (98-107) mEq/L Carbon Dioxide 34 H (21-32) mEq/L Anion Gap 11.3 (5-15) BUN 19 H (7-18) mg/dL Creatinine 1.0 (0.7-1.3) mg/dL Est Cr Clr Drug Dosing 55.93 mL/min Estimated GFR (MDRD) > 60 (>60) mL/min BUN/Creatinine Ratio 19.0 H (14-18) Glucose 143 H (80-115) mg/dL Calcium 9.1 (8.5-10.1) mg/dL Magnesium 2.0 (1.8-2.4) mg/dl C-Reactive Protein 1.6 H* (<1.0) mg/dL NT-Pro-B Natriuret Pep 1924 H (0-125) pg/mL Med Orders - Current: Current Medications Acetaminophen (Tylenol) 650 mg PO Q4H PRN PRN Reason: Pain (Mild 1-3)/fever Hydrocodone Bitart/Acetaminophen ([place] 325-5 Mg) 1 tab PO Q4H PRN PRN Reason: Pain (moderate 4-6) Last Admin: 07/09/17 15:34 Dose: 1 tab Albuterol (Proventil Hfa) 0 gm INH Q4H PRN PRN Reason: Dyspnea Albuterol/Ipratropium (Duoneb 3.0-0.5 Mg/3 Ml) 3 ml NEB Q4H PRN PRN Reason: Shortness Of Breath/wheezing Last Admin: 07/09/17 16:26 Dose: 3 ml Amiodarone HCl (Cordarone) 100 mg PO DAILY [facility] Last Admin: 07/09/17 09:36 Dose: 100 mg Apixaban (Eliquis) 5 mg PO BID [facility] Last Admin: 07/09/17 09:35 Dose: 5 mg Bisacodyl (Dulcolax) 5 mg PO DAILY PRN PRN Reason: Constipation Carvedilol (Coreg) 12.5 mg PO BID [facility] Last Admin: 07/09/17 09:35 Dose: Not Given Docusate Sodium (Colace) 100 mg PO BID PRN PRN Reason: Constipation Fentanyl (Duragesic) 12 mcg TRDERM Q72H [facility] Last Admin: 07/08/17 18:43 Dose: 12 mcg Furosemide (Lasix) 40 mg PO BIDDIURETIC [facility] Last Admin: 07/09/17 15:20 Dose: 40 mg Hydralazine HCl (Apresoline) 20 mg IVPUSH Q4H PRN PRN Reason: Hypertension Promethazine HCl 12.5 mg/ (Sodium Chloride) 50.5 mls @ 100 mls/hr IV Q6H PRN PRN Reason: Nausea/Vomiting Azithromycin 250 mg/ Sodium (Chloride) 250 mls @ 250 mls/hr IV Q24H [facility] Last Admin: 07/09/17 15:20 Dose: 250 mls/hr Lisinopril (Prinivil) 5 mg PO DAILY [facility] Last Admin: 07/09/17 09:36 Dose: 5 mg Lorazepam (Ativan) 1 mg IV Q6H PRN PRN Reason: Anxiety Magnesium Oxide (Magnesium Oxide) 400 mg PO BID [facility] Last Admin: 07/09/17 09:36 Dose: 400 mg Magnesium Sulfate (Pharmacy To Dose - Magnesium Replacement) 1 dose .XX ASDIRECTED [facility] Methylprednisolone Sodium Succinate (Solu-Medrol) 125 mg IVPUSH Q8H [facility] Last Admin: 07/09/17 09:35 Dose: 125 mg Metoprolol Tartrate (Lopressor) 5 mg IVPUSH Q4H PRN PRN Reason: Tachycardia Miscellaneous Information (Remove Patch) 1 ea TRDERM Q72H [facility] Miscellaneous Information (Remove Patch) 1 ea TRDERM DAILY@1800 [facility] Mometasone Furoate/Formoterol Fumar (Dulera 200-5 Mcg) 2 puff IH BID [facility] Last Admin: 07/09/17 08:59 Dose: 2 puff Nicotine (Habitrol) 21 mg TRDERM DAILY@1800 [facility] Last Admin: 07/08/17 18:42 Dose: 21 mg Ondansetron HCl (Zofran) 4 mg IV Q6H PRN PRN Reason: Nausea/Vomiting Pantoprazole Sodium (Protonix) 40 mg PO BIDMEALS [facility] Last Admin: 07/09/17 06:11 Dose: 40 mg Metaxalone 800 Mg 0 each PO Q8H PRN PRN Reason: muscle spasm Polyethylene Glycol (Miralax) 17 gm PO DAILY PRN PRN Reason: Constipation Potassium Chloride (Pharmacy To Dose - Potassium Replacement) 1 dose .XX ASDIRECTED [facility] Pregabalin (Lyrica) 150 mg PO Q8HR [facility] Last Admin: 07/09/17 15:19 Dose: 150 mg Rosuvastatin Calcium (Crestor) 10 mg PO DAILY [facility] Last Admin: 07/09/17 09:36 Dose: 10 mg Senna/Docusate Sodium (Senna Plus) 1 tab PO BID PRN PRN Reason: Constipation Sodium Chloride (Saline Flush) 10 ml FLUSH ASDIRECTED PRN PRN Reason: Keep Vein Open Last Admin: 07/08/17 09:38 Dose: 10 ml Spironolactone (Aldactone) 25 mg PO DAILY [facility] Last Admin: 07/09/17 09:36 Dose: 25 mg Temazepam (Restoril) 15 mg PO BEDTIME PRN PRN Reason: Sleep Last Admin: 07/08/17 21:04 Dose: 15 mg Discontinued Medications Albuterol (Proventil Neb Soln) 2.5 mg NEB ONETIME ONE Stop: 07/08/17 10:13 Last Admin: 07/08/17 10:19 Dose: 2.5 mg Albuterol/Ipratropium (Duoneb 3.0-0.5 Mg/3 Ml) 3 ml NEB ONETIME ONE Stop: 07/08/17 09:22 Last Admin: 07/08/17 09:27 Dose: 3 ml Albuterol/Ipratropium (Duoneb 3.0-0.5 Mg/3 Ml) Confirm Administered Dose 3 ml .ROUTE .STK-MED ONE Stop: 07/08/17 09:28 Last Admin: 07/08/17 09:38 Dose: Not Given Hydromorphone HCl (Dilaudid) 0.5 mg IVPUSH ONETIME ONE Stop: 07/08/17 09:28 Last Admin: 07/08/17 09:35 Dose: 0.5 mg Hydromorphone HCl (Dilaudid) 0.5 mg IVPUSH ONETIME ONE Stop: 07/08/17 10:13 Last Admin: 07/08/17 10:36 Dose: 0.5 mg Azithromycin 250 mg/ Sodium (Chloride) 250 mls @ 250 mls/hr IV ONETIME ONE Stop: 07/08/17 15:10 Last Admin: 07/08/17 19:50 Dose: Not Given Azithromycin 250 mg/ Sodium (Chloride) 250 mls @ 250 mls/hr IV Q24H [facility] Methylprednisolone Sodium Succinate (Solu-Medrol) 125 mg IVPUSH ONETIME ONE Stop: 07/08/17 09:22 Last Admin: 07/08/17 09:37 Dose: 125 mg Morphine Sulfate (Morphine) 2 mg IVPUSH Q4H PRN PRN Reason: Other Stop: 07/09/17 12:04 Last Admin: 07/08/17 16:24 Dose: 2 mg Non-Formulary Medication (Hydrocodone/Acetaminophen) 1 tab PO Q6H PRN PRN Reason: Pain Pneumococcal Polyvalent Vaccine (Pneumovax 23) 0.5 ml IM .ONCE ONE Stop: 07/08/17 11:34 Pregabalin (Lyrica) 150 mg PO Q8H PRN PRN Reason: Pain Last Admin: 07/08/17 15:37 Dose: 150 mg - Exam Quality Assessment: Supplemental Oxygen General: Alert, Oriented, Cooperative, No Acute Distress, Other (Emaciated) HEENT: Pupils Equal, Pupils Reactive, Mucous Membr. Moist/Flippin Neck: Supple, No JVD, Other (no ac) Lungs: Decreased Breath Sounds, Wheezing Cardiovascular: Other (Distant heart sounds) GI/Abdominal Exam: Normal Bowel Sounds, Soft, Non-Tender (Male) Exam: Deferred Back Exam: Normal Inspection, Decreased Range of Motion Extremities: Normal Inspection, Normal Range of Motion, Non-Tender, No Pedal Edema Peripheral Pulses: 2+: Dorsalis Pedis (L), Dorsalis Pedis (R) Skin: Warm, Dry, Intact Neurological: No New Focal Deficit Psy/Mental Status: Alert, Normal Affect, Normal Mood - Problem List Review Problem List Initiated/Reviewed/Updated: Yes - My Orders Last 24 Hours: My Active Orders 07/08/17 16:30 fentaNYL [Duragesic] 12 mcg TRDERM Q72H 07/08/17 17:00 Pantoprazole [ProTONIX] 40 mg PO BIDMEALS 07/08/17 17:30 methylPREDNISolone Sod Succ [Solu-MEDROL] 125 mg IVPUSH Q8H 07/08/17 18:00 Nicotine [Habitrol] 21 mg TRDERM DAILY@1800 07/08/17 21:00 Apixaban [Eliquis] 5 mg PO BID Carvedilol [Coreg] 12.5 mg PO BID Magnesium Oxide 400 mg PO BID Mometasone/Formoterol [Dulera 200-5 MCG] 2 puff IH BID Temazepam [Restoril] 15 mg PO BEDTIME PRN 07/08/17 Dinner Sodium Restricted Diet [DIET] 07/09/17 09:00 Amiodarone [Cordarone] 100 mg PO DAILY Lisinopril [Prinivil] 5 mg PO DAILY Rosuvastatin [Crestor] 10 mg PO DAILY Spironolactone [Aldactone] 25 mg PO DAILY 07/09/17 10:00 Pregabalin [Lyrica] 150 mg PO Q8HR 07/09/17 10:57 Consult to Pulmonary Rehabilitation [CONS] Routine 07/09/17 18:00 Remove Patch 1 ea TRDERCheo DAILY@1800 07/10/17 05:11 BASIC METABOLIC PANEL,BMP [CHEM] AM C-REACTIVE PROTEIN [CHEM] AM MAGNESIUM [CHEM] AM 07/11/17 05:11 BASIC METABOLIC PANEL,BMP [CHEM] AM C-REACTIVE PROTEIN [CHEM] AM MAGNESIUM [CHEM] AM 07/11/17 16:30 Remove Patch 1 ea DAJUANDERCheo Q72H - Assessment Assessment:: Assessment/Plan: Acute: COPD Exacerbation, Advanced - Risk Factors: Advanced COPD and Nicotine Abuse - He still smokes 1ppd - IV Steroids, Scheduled and PRN Bronchodilators, Mag Supplement, IV Azithmormycin, Supplemental O2 - Decongestant/Expectorant - Sputum Cx/Sx: non so far Hypoxemia - Has chronic SOB on Exertion - By his looks, he has advanced COPD - It appears he may have hypercapnea as well with increased CO2 level of 36 - His 50/50 COPD based on his ABG - He is currently on 3.5 L NC sating 91%; he was in the 70s on presentation to ED - Treat underlying cause above Elevated Pro-BNP Level - 1759 --> 1924 - This is likely induced by his COPD Exacerbation - Could not appreciate volume overload on clinical exam and imaging study - Heart healthy diet - Recent 2D echo in February: EF is normal 51% - He is not in volume overload and this is not acute exacerbation Nicotine Abuse - Still smokes 1ppd - Nicotine Patch Daily - Counseled on smoking cessation Chronic: Impaired Vision CAD HLD Hx/o [place] S/p Pacemaker Placement and Stents Advanced COPD SOB on Exertion Hxo HF with Unknown EF, no data in [facility] Kidney Disease Back Pain OA/DJD Hx/o Substance Abuse Nicotine Abuse - Plan Plan:: Plan: He improved clinically but not much Routine AM Labs Change Fentanyl patch dose to 25mcg from 12.5 Oxycodone 10 mg po Q6 PRN Pain Change steroid dose to 80 mg IVP BID starting tomorrow Continue PT/OT/RT SW/CM for d/c planning Recommend Pulmonary Rehab after discharge Additional orders as above Code status: 1
[2017-07-09] MEDS: Pregabalin 75 MG Cap PO SCH ×3 (10:59→23:48)
[2017-07-09] MEDS: Azithromycin 250 MG in Sodium Chloride 0.9% 250 ML IV SCH (15:20)
[2017-07-09] MEDS: Nicotine 21 MG/24 Hr Patch TRDERM SCH (17:17)
[2017-07-09] MEDS ORDERED: Bumetanide 1 MG/4 ML MDV IVPUSH ONE (17:35)
[2017-07-09] MEDS ORDERED: fentaNYL 25 MCG/HR Transdermal Patch TRDERM SCH (18:00)
[2017-07-09] MEDS: oxyCODONE 5 MG Tab PO PRN (20:46)
[2017-07-09] MEDS ORDERED: methylPREDNISolone Sodium Succinate 125 MG/2 ML SDV IVPUSH ONE (21:00)
[2017-07-10] MEDS: Albuterol/Ipratropium 3.0-0.5 MG/3 ML Neb Soln NEB PRN ×6 (02:04→20:33)
[2017-07-10] MEDS: Morphine 2 MG/ML Syringe IVPUSH PRN ×3 (06:26→22:10)
[2017-07-10] MEDS: Pantoprazole 40 MG Tab.CR PO SCH ×2 (06:26→17:01)
[2017-07-10] MEDS: Pregabalin 75 MG Cap PO SCH ×3 (06:26→21:04)
[2017-07-10] MEDS: Formoterol/Mometasone 200-5 MCG 8.8 GM Inhaler IH SCH ×2 (08:38→20:32)
[2017-07-10] MEDS: Apixaban 5 MG Tab PO SCH ×2 (09:12→21:05)
[2017-07-10] MEDS: methylPREDNISolone Sodium Succinate 125 MG/2 ML SDV IVPUSH SCH ×2 (09:12→21:04)
[2017-07-10] MEDS: Furosemide 40 MG Tab PO SCH (09:13)
[2017-07-10] MEDS: Rosuvastatin 10 MG Tab PO SCH (09:13)
[2017-07-10] MEDS: Magnesium Oxide 400 MG Tab PO SCH ×2 (09:13→21:05)
[2017-07-10] MEDS: Spironolactone 25 MG Tab PO SCH (09:13)
[2017-07-10] MEDS: Carvedilol 12.5 MG Tab PO SCH ×2 (09:16→21:05)
[2017-07-10] MEDS: Amiodarone 200 MG Tab PO SCH (09:16)
[2017-07-10] MEDS: Lisinopril 5 MG Tab PO SCH (09:16)
--- NOTE | 2017-07-10 09:31 | PCM.PN ---
- General Info Date of Service: 07/10/17 Admission Dx/Problem (Free Text): Admission Diagnosis/Problem Admission Diagnosis/Problem COPD, Severe chronic obstructive pulmonary disease Subjective Update: Follow Up Functional Status: Reports: Pain Controlled, Tolerating Diet, Urinating. Denies : New Symptoms - Review of Systems General: Denies: Fever, Chills HEENT: Reports: No Symptoms Pulmonary: Reports: Shortness of Breath, Cough Cardiovascular: Reports: Dyspnea on Exertion. Denies: Chest Pain Gastrointestinal: Denies: Abdominal Pain, Nausea, Vomiting Genitourinary: Reports: No Symptoms Musculoskeletal: Reports: No Symptoms Skin: Denies: Cyanosis, Pallor, Diaphoresis, Bruising, Rash Neurological: Reports: Difficulty Walking. Denies: Confusion, Weakness, Gait Disturbance Psychiatric: Denies: Depression, Anxiety, Agitation, Hallucinations Systems Review Comment:: He slept on and off overnight. His back and knee pain are controlled. He breathes better after morphine. He has no new complaints. - Patient Data Vitals - Most Recent: Last Vital Signs Temp 37.2 C 07/10/17 03:23 Pulse 62 07/10/17 09:16 Resp 16 07/10/17 03:23 BP 129/67 07/10/17 09:16 Pulse Ox 98 07/10/17 08:39 Weight - Most Recent: 52.526 kg I&O - Last 24 Hours: Intake & Output 07/09/17 07/10/17 07/10/17 22:59 06:59 14:59 Intake Total 790 350 Output Total 1150 Balance 790 -800 Lab Results Last 24 Hours: Laboratory Results - last 24 hr 07/10/17 Range/Units 06:09 Sodium 136 (136-145) mEq/L Potassium 4.2 (3.5-5.1) mEq/L Chloride 97 L (98-107) mEq/L Carbon Dioxide 33 H (21-32) mEq/L Anion Gap 10.2 (5-15) BUN 23 H (7-18) mg/dL Creatinine 0.9 (0.7-1.3) mg/dL Est Cr Clr Drug Dosing 62.42 mL/min Estimated GFR (MDRD) > 60 (>60) mL/min BUN/Creatinine Ratio 25.6 H (14-18) Glucose 159 H (80-115) mg/dL Calcium 9.1 (8.5-10.1) mg/dL Magnesium 2.3 (1.8-2.4) mg/dl C-Reactive Protein 0.5 (<1.0) mg/dL Med Orders - Current: Current Medications Acetaminophen (Tylenol) 650 mg PO Q4H PRN PRN Reason: Pain (Mild 1-3)/fever Hydrocodone Bitart/Acetaminophen (Kyburz 325-5 Mg) 1 tab PO Q4H PRN PRN Reason: Pain (moderate 4-6) Last Admin: 07/09/17 15:34 Dose: 1 tab Albuterol (Proventil Hfa) 0 gm INH Q4H PRN PRN Reason: Dyspnea Albuterol/Ipratropium (Duoneb 3.0-0.5 Mg/3 Ml) 3 ml NEB Q4H PRN PRN Reason: Shortness Of Breath/wheezing Last Admin: 07/10/17 06:11 Dose: 3 ml Amiodarone HCl (Cordarone) 100 mg PO DAILY [facility] Last Admin: 07/10/17 09:16 Dose: 100 mg Apixaban (Eliquis) 5 mg PO BID [facility] Last Admin: 07/10/17 09:12 Dose: 5 mg Bisacodyl (Dulcolax) 5 mg PO DAILY PRN PRN Reason: Constipation Carvedilol (Coreg) 12.5 mg PO BID [facility] Last Admin: 07/10/17 09:16 Dose: 12.5 mg Docusate Sodium (Colace) 100 mg PO BID PRN PRN Reason: Constipation Fentanyl (Duragesic) 25 mcg TRDERM Q72H [facility] Last Admin: 07/09/17 18:23 Dose: 25 mcg Furosemide (Lasix) 40 mg PO DAILY [facility] Last Admin: 07/10/17 09:13 Dose: 40 mg Hydralazine HCl (Apresoline) 20 mg IVPUSH Q4H PRN PRN Reason: Hypertension Promethazine HCl 12.5 mg/ (Sodium Chloride) 50.5 mls @ 100 mls/hr IV Q6H PRN PRN Reason: Nausea/Vomiting Azithromycin 250 mg/ Sodium (Chloride) 250 mls @ 250 mls/hr IV Q24H [facility] Last Admin: 07/09/17 15:20 Dose: 250 mls/hr Lisinopril (Prinivil) 5 mg PO DAILY [facility] Last Admin: 07/10/17 09:16 Dose: 5 mg Lorazepam (Ativan) 1 mg IV Q6H PRN PRN Reason: Anxiety Magnesium Oxide (Magnesium Oxide) 400 mg PO BID [facility] Last Admin: 07/10/17 09:13 Dose: 400 mg Magnesium Sulfate (Pharmacy To Dose - Magnesium Replacement) 1 dose .XX ASDIRECTED [facility] Methylprednisolone Sodium Succinate (Solu-Medrol) 80 mg IVPUSH Q12H [facility] Last Admin: 07/10/17 09:12 Dose: 80 mg Metoprolol Tartrate (Lopressor) 5 mg IVPUSH Q4H PRN PRN Reason: Tachycardia Miscellaneous Information (Remove Patch) 1 ea TRDERM Q72H [facility] Miscellaneous Information (Remove Patch) 1 ea TRDERM DAILY@1800 [facility] Last Admin: 07/09/17 17:16 Dose: 1 ea Miscellaneous Information (Remove Patch) 1 ea TRDERM Q72H [facility] Last Admin: 07/09/17 18:24 Dose: Not Given Mometasone Furoate/Formoterol Fumar (Dulera 200-5 Mcg) 2 puff IH BID [facility] Last Admin: 07/10/17 08:38 Dose: 2 puff Morphine Sulfate (Morphine) 2 mg IVPUSH Q4H PRN PRN Reason: Other Last Admin: 07/10/17 06:26 Dose: 2 mg Nicotine (Habitrol) 21 mg TRDERM DAILY@1800 [facility] Last Admin: 07/09/17 17:17 Dose: 21 mg Ondansetron HCl (Zofran) 4 mg IV Q6H PRN PRN Reason: Nausea/Vomiting Oxycodone HCl (Oxycodone) 10 mg PO Q6H PRN PRN Reason: Pain Last Admin: 07/09/17 20:46 Dose: 10 mg Pantoprazole Sodium (Protonix) 40 mg PO BIDMEALS [facility] Last Admin: 07/10/17 06:26 Dose: 40 mg Metaxalone 800 Mg 0 each PO Q8H PRN PRN Reason: muscle spasm Polyethylene Glycol (Miralax) 17 gm PO DAILY PRN PRN Reason: Constipation Potassium Chloride (Pharmacy To Dose - Potassium Replacement) 1 dose .XX ASDIRECTED [facility] Pregabalin (Lyrica) 150 mg PO Q8HR [facility] Last Admin: 07/10/17 06:26 Dose: 150 mg Rosuvastatin Calcium (Crestor) 10 mg PO DAILY [facility] Last Admin: 07/10/17 09:13 Dose: 10 mg Senna/Docusate Sodium (Senna Plus) 1 tab PO BID PRN PRN Reason: Constipation Sodium Chloride (Saline Flush) 10 ml FLUSH ASDIRECTED PRN PRN Reason: Keep Vein Open Last Admin: 07/08/17 09:38 Dose: 10 ml Spironolactone (Aldactone) 25 mg PO DAILY [facility] Last Admin: 07/10/17 09:13 Dose: 25 mg Temazepam (Restoril) 15 mg PO BEDTIME PRN PRN Reason: Sleep Last Admin: 07/08/17 21:04 Dose: 15 mg Discontinued Medications Albuterol (Proventil Neb Soln) 2.5 mg NEB ONETIME ONE Stop: 07/08/17 10:13 Last Admin: 07/08/17 10:19 Dose: 2.5 mg Albuterol/Ipratropium (Duoneb 3.0-0.5 Mg/3 Ml) 3 ml NEB ONETIME ONE Stop: 07/08/17 09:22 Last Admin: 07/08/17 09:27 Dose: 3 ml Albuterol/Ipratropium (Duoneb 3.0-0.5 Mg/3 Ml) Confirm Administered Dose 3 ml .ROUTE .STK-MED ONE Stop: 07/08/17 09:28 Last Admin: 07/08/17 09:38 Dose: Not Given Bumetanide (Bumex) 0.5 mg IVPUSH ONETIME ONE Stop: 07/09/17 17:36 Last Admin: 07/09/17 18:22 Dose: 0.5 mg Fentanyl (Duragesic) 12 mcg TRDERM Q72H [facility] Last Admin: 07/08/17 18:43 Dose: 12 mcg Furosemide (Lasix) 40 mg PO BIDDIURETIC [facility] Last Admin: 07/09/17 15:20 Dose: 40 mg Hydromorphone HCl (Dilaudid) 0.5 mg IVPUSH ONETIME ONE Stop: 07/08/17 09:28 Last Admin: 07/08/17 09:35 Dose: 0.5 mg Hydromorphone HCl (Dilaudid) 0.5 mg IVPUSH ONETIME ONE Stop: 07/08/17 10:13 Last Admin: 07/08/17 10:36 Dose: 0.5 mg Azithromycin 250 mg/ Sodium (Chloride) 250 mls @ 250 mls/hr IV ONETIME ONE Stop: 07/08/17 15:10 Last Admin: 07/08/17 19:50 Dose: Not Given Azithromycin 250 mg/ Sodium (Chloride) 250 mls @ 250 mls/hr IV Q24H [facility] Methylprednisolone Sodium Succinate (Solu-Medrol) 125 mg IVPUSH ONETIME ONE Stop: 07/08/17 09:22 Last Admin: 07/08/17 09:37 Dose: 125 mg Methylprednisolone Sodium Succinate (Solu-Medrol) 125 mg IVPUSH Q8H [facility] Last Admin: 07/09/17 17:17 Dose: 125 mg Methylprednisolone Sodium Succinate (Solu-Medrol) 125 mg IVPUSH ONETIME ONE Stop: 07/09/17 21:01 Last Admin: 07/09/17 20:45 Dose: 125 mg Morphine Sulfate (Morphine) 2 mg IVPUSH Q4H PRN PRN Reason: Other Stop: 07/09/17 12:04 Last Admin: 07/08/17 16:24 Dose: 2 mg Non-Formulary Medication (Hydrocodone/Acetaminophen) 1 tab PO Q6H PRN PRN Reason: Pain Pneumococcal Polyvalent Vaccine (Pneumovax 23) 0.5 ml IM .ONCE ONE Stop: 07/08/17 11:34 Pregabalin (Lyrica) 150 mg PO Q8H PRN PRN Reason: Pain Last Admin: 07/08/17 15:37 Dose: 150 mg - Exam Quality Assessment: Supplemental Oxygen General: Alert, Oriented, Cooperative, Other (older than stated age) HEENT: Pupils Equal, Pupils Reactive, EOMI, Mucous Membr. Moist/[place] Neck: Supple, Trachea Midline, Other (no accessory muscle use) Lungs: Normal Respiratory Effort, Decreased Breath Sounds, Other (tight air entry) Cardiovascular: Other (distant heart sound) GI/Abdominal Exam: Normal Bowel Sounds, Soft, Non-Tender (Male) Exam: Deferred Back Exam: Normal Inspection, Decreased Range of Motion Extremities: Normal Inspection, Normal Range of Motion, Non-Tender, No Pedal Edema Skin: Warm, Dry, Intact Neurological: No New Focal Deficit Psy/Mental Status: Alert, Normal Affect, Normal Mood - Problem List Review Problem List Initiated/Reviewed/Updated: Yes - My Orders Last 24 Hours: My Active Orders 07/09/17 09:00 Amiodarone [Cordarone] 100 mg PO DAILY Lisinopril [Prinivil] 5 mg PO DAILY Rosuvastatin [Crestor] 10 mg PO DAILY Spironolactone [Aldactone] 25 mg PO DAILY 07/09/17 10:00 Pregabalin [Lyrica] 150 mg PO Q8HR 07/09/17 10:57 Consult to Pulmonary Rehabilitation [CONS] Routine 07/09/17 17:20 oxyCODONE 10 mg PO Q6H PRN 07/09/17 17:44 Morphine 2 mg IVPUSH Q4H PRN 07/09/17 18:00 Remove Patch 1 ea TRDERM DAILY@1800 Remove Patch 1 ea TRDERM Q72H fentaNYL [Duragesic] 25 mcg TRDERM Q72H 07/10/17 09:00 Furosemide [Lasix] 40 mg PO DAILY methylPREDNISolone Sod Succ [Solu-MEDROL] 80 mg IVPUSH Q12H 07/11/17 05:11 BASIC METABOLIC PANEL,BMP [CHEM] AM C-REACTIVE PROTEIN [CHEM] AM MAGNESIUM [CHEM] AM 07/11/17 16:30 Remove Patch 1 ea TRDERM Q72H - Assessment Assessment:: Assessment/Plan: Acute: Advanced COPD - Risk Factors: Advanced COPD and Nicotine Abuse - He still smokes 1ppd - IV Steroids, Scheduled and PRN Bronchodilators, Mag Supplement, IV Azithromycin, Supplemental O2 - Decongestant/Expectorant - Sputum Cx/Sx: non so far - His breathing improves with PRN Morphine - Intermittent Dyspnea - It appears this maybe as good as he ever gonna get Respiratory Failure - 2/2 Combined Hypoxemia and Hypercania - Has chronic SOB on Exertion - He has advanced COPD - It appears he may have hypercapnea as well with increased CO2 level of 36 - His 50/50 COPD based on his ABG - He is currently on 3.5 L NC sating 91%; he was in the 70s on presentation to ED - Treat underlying cause above Nicotine Abuse - Still smokes 1ppd - Nicotine Patch Daily - Counseled on smoking cessation Malnutrition - Emaciated - Dietary consulted [facility] Life [facility] - Informed patient this is likely his new baseline - Since he refused pulmonary rehab, offered Hospice - for Hospice care Resolved: Elevated Pro-BNP Level w/o Acute Heart Failure - 1758 --> 1923 - This is likely induced by his COPD Exacerbation - Could not appreciate volume overload on clinical exam and imaging study - Heart healthy diet - Recent 2D echo in February: EF is normal 51% - He is not in volume overload and this is not acute exacerbation Chronic: Impaired Vision CAD HLD Hx/o [place] S/p Pacemaker Placement and Stents Advanced COPD SOB on Exertion Hxo HF with Unknown EF, no data in [facility] Kidney Disease Back Pain OA/DJD Hx/o Substance Abuse Nicotine Abuse - Plan Plan:: Plan: He is essentially the same Routine AM Labs Pain is controlled Continue PT/OT/RT SW/CM for d/c planning Refused Pulmonary Rehab but receptive to Hospice Hospice consult Additional orders as above Code status: 1 Possible d/c in AM
[2017-07-10] MEDS: Acetaminophen/HYDROcodone 325-5 MG Tab PO PRN ×3 (12:00→21:05)
[2017-07-10] MEDS: Azithromycin 250 MG in Sodium Chloride 0.9% 250 ML IV SCH (14:00)
[2017-07-10] MEDS: oxyCODONE 5 MG Tab PO PRN (14:00)
[2017-07-10] MEDS: Nicotine 21 MG/24 Hr Patch TRDERM SCH (17:00)
--- NOTE | 2017-07-10 17:13 | PCM.DCSUM1 ---
Discharge Summary - Hospital Course Brief History: This is a 62 yo male who is older than his stated age with past medical history of Impaired Vision, CAD, HLD, Hx/o SC S/p Pacemaker Placement and Stents, Hx/o HF with Unknown EF, no data in [employer], Kidney Disease, Chronic Back Pain, OA/DJD, Hx/o Substance Abuse, Nicotine Abuse who comes with complaints of worsening shortness of breath over the past week. He was admitted for Acute on Chronic COPD. - Discharge Data Discharge Date: 07/11/17 Discharge Disposition: Home, Self-Care 01 Condition: Good - Discharge Diagnosis/Problem(s) (1) End stage COPD SNOMED Code(s): 922665711 ICD Code: J44.9 - CHRONIC OBSTRUCTIVE PULMONARY DISEASE, UNSPECIFIED Status : Acute (2) End of life care SNOMED Code(s): 443658459, 817919679 ICD Code: Z51.5 - ENCOUNTER FOR PALLIATIVE CARE Status: Acute (3) Encounter for hospice care discussion SNOMED Code(s): 138167195 ICD Code: Z71.89 - OTHER SPECIFIED COUNSELING Status: Acute (4) COPD exacerbation SNOMED Code(s): 751334561, 010588077 ICD Code: J44.1 - CHRONIC OBSTRUCTIVE PULMONARY DISEASE W (ACUTE) EXACERBATION Status: Resolved (5) Malnutrition SNOMED Code(s): 4765609 ICD Code: E46 - UNSPECIFIED PROTEIN-CALORIE MALNUTRITION Status: Chronic Qualifiers: Malnutrition type: protein-calorie malnutrition Protein-calorie malnutrition severity: moderate Qualified Code(s): E44.0 - Moderate protein- calorie malnutrition (6) Nicotine abuse SNOMED Code(s): 42511946 ICD Code: Z72.0 - TOBACCO USE Status: Chronic (7) Respiratory failure with hypoxia and hypercapnia SNOMED Code(s): 50019125 ICD Code: J96.91 - RESPIRATORY FAILURE, UNSPECIFIED WITH HYPOXIA; J96.92 - RESPIRATORY FAILURE, UNSPECIFIED WITH HYPERCAPNIA Status: Chronic Qualifiers: Chronicity: acute on chronic Qualified Code(s): J96.21 - Acute and chronic respiratory failure with hypoxia; J96.22 - Acute and chronic respiratory failure with hypercapnia - Patient Summary/Data Operative Procedure(s) Performed: None Complications: None Consults: Consultations 07/08/17 12:09 Consult to Case Management [CONS] Routine Consult to Drug Regulatory Affairs Specialist [CONS] Routine Consult to Spiritual Care [CONS] Routine OT Evaluation and Treatment [CONS] Routine PT Evaluation and Treatment [CONS] Routine Respiratory Care Assess and Treatment [CONS] Routine 07/09/17 10:57 Consult to Pulmonary Rehabilitation [CONS] Routine 07/10/17 13:46 Consult to Hospice [CONS] Routine Labs Pending at D/C: None Recommended Follow-up Testing/Procedures: None Planned Operative Procedure(s) after DC: None Hospital Course: Patient was primarily admitted for acute COPD exacerbation. He carried a past medical hx/o COPD with over 30 years of smoking. He was recently seen at his family doctor's office and wast put on supplemental O2 for worsening shortness of breath. However he marginally improved on this regimen. Patient appeared to be on appropriate breathing treatment regimen unfortunately he still continued to smoke. On admission, he received initial treatment in ED before he was sent to the floor for further treatment. On the floor, he was provided with intravenous steroids, bronchodilators, azithromycin, magnesium supplement, supplemental O2 and routine respiratory care. But his dyspnea slight improved. We added PRN morphine and this seemed to have helped his breathing and chronic pain. His hospital course was uncomplicated. Patient understood he had end stage COPD and likely at terminal stage. We offered pulmonary rehab but he refused it. He however was receptive to Hospice for end of life care. He was discharged with comfort measures medications and Hospice will follow up with him tomorrow. - Patient Instructions Diet: Usual Diet as Tolerated, Low Sodium Activity: As Tolerated Driving: Do Not Drive Showering/Bathing: May Shower Notify Provider of: Fever, Increased Pain Other/Special Instructions: - Please take all medications as directed. - Do not smoke while your oxygen is on. - Hospice will visit with you tomorrow. - Call or follow up with your family doctor if you have any questions or concerns right after discharge - Discharge Plan Prescriptions/Med Rec: LORazepam [Ativan] 1 mg PO Q6HR PRN #20 PRN Reason: Anxiety Docusate Sodium [Colace] 100 mg PO BID #60 cap fentaNYL [Duragesic] 25 mcg TRDERM ASDIRECTED #10 patch Ipratropium [Atrovent HFA] 12.9 gm INH ASDIRECTED PRN #1 inhaler PRN Reason: Other Morphine 15 mg PO Q6H #16 tablet Nicotine [Habitrol] 21 mg TRDERM DAILY@0800 #30 patch Polyethylene Glycol 3350 [MiraLAX] 17 gm PO ASDIRECTED PRN #16 packet PRN Reason: Constipation Home Medications: Home Meds Amiodarone [Cordarone] 100 mg PO DAILY 06/09/16 [History] atorvaSTATin [Lipitor] 40 mg PO BEDTIME 06/09/16 [History] Budesonide/Formoterol [Symbicort 160-4.5 MCG] 2 puff INH BID 09/13/16 [History] Lisinopril 5 mg PO DAILY 09/13/16 [History] Apixaban [Eliquis] 5 mg PO BID 12/24/16 [History] Carvedilol 12.5 mg PO BID 12/24/16 [History] Omeprazole 40 mg PO BID 05/24/17 [History] Spironolactone [Aldactone] 25 mg PO DAILY 05/24/17 [History] Albuterol [Ventolin HFA] 2 puff INH Q4H PRN 07/08/17 [History] Pregabalin [Lyrica] 150 mg PO Q8H PRN 07/08/17 [History] Docusate Sodium [Colace] 100 mg PO BID #60 cap 07/11/17 [Rx] Furosemide [Lasix] 20 mg PO BID #30 07/11/17 [Rx] Ipratropium [Atrovent HFA] 12.9 gm INH ASDIRECTED PRN #1 inhaler 07/11/17 [Rx] LORazepam [Ativan] 1 mg PO Q6HR PRN #20 07/11/17 [Rx] Morphine 15 mg PO Q6H #16 tablet 07/11/17 [Rx] Nicotine [Habitrol] 21 mg TRDERM DAILY@0800 #30 patch 07/11/17 [Rx] Polyethylene Glycol 3350 [MiraLAX] 17 gm PO ASDIRECTED PRN #16 packet 07/11/17 [ Rx] fentaNYL [Duragesic] 25 mcg TRDERM ASDIRECTED #10 patch 07/11/17 [Rx] Patient Handouts: Chronic Obstructive Pulmonary Disease Exacerbation, Easy-to- Read, Smoking Hazards, Shortness of Breath, [id number], Chronic Obstructive Pulmonary Disease, Xhav-ur-Lemh, Oxygen Use at Home, Smoking Cessation, Tips for Success, Hospice, Tobacco Use Disorder Referrals: Geno Farley NP [Primary Care Provider] - 07/18/17 3:00 pm (Follow up appointment with Flor Farley on July 18, 2017 at 3:00 pm. ) - Discharge Summary/Plan Comment DC Time >30 min.: Yes (45 mins) Discharge Summary/Plan Comment: Discharge to Home - General Info Date of Service: 07/11/17 Admission Dx/Problem (Free Text: Admission Diagnosis/Problem Admission Diagnosis/Problem COPD, Severe chronic obstructive pulmonary disease Subjective Update: Follow Up Functional Status: Reports: Pain Controlled, Tolerating Diet, Ambulating, Urinating. Denies: New Symptoms - Review of Systems General: Denies: Fever, Chills HEENT: Reports: No Symptoms Pulmonary: Reports: Shortness of Breath Cardiovascular: Reports: Dyspnea on Exertion. Denies: Chest Pain, Lightheadedness Gastrointestinal: Denies: Abdominal Pain, Nausea, Vomiting Genitourinary: Reports: No Symptoms Musculoskeletal: Reports: No Symptoms Skin: Denies: Cyanosis, Rash Neurological: Denies: Confusion, Gait Disturbance Psychiatric: Denies: Depression, Anxiety, Agitation, Hallucinations - Patient Data Vitals - Most Recent: Last Vital Signs Temp 36.6 C 07/10/17 13:15 Pulse 61 07/10/17 13:15 Resp 20 07/10/17 13:15 BP 123/71 07/10/17 13:15 Pulse Ox 94 L 07/10/17 14:32 Weight - Most Recent: 52.526 kg I&O - Last 24 hours: Intake & Output 07/10/17 07/10/17 07/10/17 06:59 14:59 22:59 Intake Total 350 430 660 Output Total 1150 1350 Balance -800 430 -690 Lab Results - Last 24 hrs: Laboratory Results - last 24 hr 07/10/17 Range/Units 06:09 Sodium 136 (136-145) mEq/L Potassium 4.2 (3.5-5.1) mEq/L Chloride 97 L (98-107) mEq/L Carbon Dioxide 33 H (21-32) mEq/L Anion Gap 10.2 (5-15) BUN 23 H (7-18) mg/dL Creatinine 0.9 (0.7-1.3) mg/dL Est Cr Clr Drug Dosing 62.42 mL/min Estimated GFR (MDRD) > 60 (>60) mL/min BUN/Creatinine Ratio 25.6 H (14-18) Glucose 159 H (80-115) mg/dL Calcium 9.1 (8.5-10.1) mg/dL Magnesium 2.3 (1.8-2.4) mg/dl C-Reactive Protein 0.5 (<1.0) mg/dL Med Orders - Current: Current Medications Acetaminophen (Tylenol) 650 mg PO Q4H PRN PRN Reason: Pain (Mild 1-3)/fever Hydrocodone Bitart/Acetaminophen ([place] 325-5 Mg) 1 tab PO Q4H PRN PRN Reason: Pain (moderate 4-6) Last Admin: 07/10/17 17:02 Dose: 1 tab Albuterol (Proventil Hfa) 0 gm INH Q4H PRN PRN Reason: Dyspnea Albuterol/Ipratropium (Duoneb 3.0-0.5 Mg/3 Ml) 3 ml NEB Q4H PRN PRN Reason: Shortness Of Breath/wheezing Last Admin: 07/10/17 14:32 Dose: 3 ml Amiodarone HCl (Cordarone) 100 mg PO DAILY [facility] Last Admin: 07/10/17 09:16 Dose: 100 mg Apixaban (Eliquis) 5 mg PO BID [facility] Last Admin: 07/10/17 09:12 Dose: 5 mg Bisacodyl (Dulcolax) 5 mg PO DAILY PRN PRN Reason: Constipation Carvedilol (Coreg) 12.5 mg PO BID [facility] Last Admin: 07/10/17 09:16 Dose: 12.5 mg Docusate Sodium (Colace) 100 mg PO BID PRN PRN Reason: Constipation Fentanyl (Duragesic) 25 mcg TRDERM Q72H [facility] Last Admin: 07/09/17 18:23 Dose: 25 mcg Furosemide (Lasix) 40 mg PO DAILY [facility] Last Admin: 07/10/17 09:13 Dose: 40 mg Hydralazine HCl (Apresoline) 20 mg IVPUSH Q4H PRN PRN Reason: Hypertension Promethazine HCl 12.5 mg/ (Sodium Chloride) 50.5 mls @ 100 mls/hr IV Q6H PRN PRN Reason: Nausea/Vomiting Azithromycin 250 mg/ Sodium (Chloride) 250 mls @ 250 mls/hr IV Q24H [facility] Last Admin: 07/10/17 14:00 Dose: 250 mls/hr Lisinopril (Prinivil) 5 mg PO DAILY [facility] Last Admin: 07/10/17 09:16 Dose: 5 mg Lorazepam (Ativan) 1 mg IV Q6H PRN PRN Reason: Anxiety Magnesium Oxide (Magnesium Oxide) 400 mg PO BID [facility] Last Admin: 07/10/17 09:13 Dose: 400 mg Magnesium Sulfate (Pharmacy To Dose - Magnesium Replacement) 1 dose .XX ASDIRECTED [facility] Methylprednisolone Sodium Succinate (Solu-Medrol) 80 mg IVPUSH Q12H [facility] Last Admin: 07/10/17 09:12 Dose: 80 mg Metoprolol Tartrate (Lopressor) 5 mg IVPUSH Q4H PRN PRN Reason: Tachycardia Miscellaneous Information (Remove Patch) 1 ea TRDERM Q72H [facility] Miscellaneous Information (Remove Patch) 1 ea TRDERM DAILY@1800 [facility] Last Admin: 07/10/17 17:01 Dose: 1 ea Miscellaneous Information (Remove Patch) 1 ea TRDERM Q72H [facility] Last Admin: 07/09/17 18:24 Dose: Not Given Mometasone Furoate/Formoterol Fumar (Dulera 200-5 Mcg) 2 puff IH BID [facility] Last Admin: 07/10/17 08:38 Dose: 2 puff Morphine Sulfate (Morphine) 2 mg IVPUSH Q4H PRN PRN Reason: Other Last Admin: 07/10/17 10:49 Dose: 2 mg Nicotine (Habitrol) 21 mg TRDERM DAILY@1800 [facility] Last Admin: 07/10/17 17:00 Dose: 21 mg Ondansetron HCl (Zofran) 4 mg IV Q6H PRN PRN Reason: Nausea/Vomiting Oxycodone HCl (Oxycodone) 10 mg PO Q6H PRN PRN Reason: Pain Last Admin: 07/10/17 14:00 Dose: 10 mg Pantoprazole Sodium (Protonix) 40 mg PO BIDMEALS [facility] Last Admin: 07/10/17 17:01 Dose: 40 mg Metaxalone 800 Mg 0 each PO Q8H PRN PRN Reason: muscle spasm Polyethylene Glycol (Miralax) 17 gm PO DAILY PRN PRN Reason: Constipation Potassium Chloride (Pharmacy To Dose - Potassium Replacement) 1 dose .XX ASDIRECTED [facility]ER Pregabalin (Lyrica) 150 mg PO Q8HR [facility] Last Admin: 07/10/17 14:00 Dose: 150 mg Rosuvastatin Calcium (Crestor) 10 mg PO DAILY [facility] Last Admin: 07/10/17 09:13 Dose: 10 mg Senna/Docusate Sodium (Senna Plus) 1 tab PO BID PRN PRN Reason: Constipation Sodium Chloride (Saline Flush) 10 ml FLUSH ASDIRECTED PRN PRN Reason: Keep Vein Open Last Admin: 07/08/17 09:38 Dose: 10 ml Spironolactone (Aldactone) 25 mg PO DAILY [facility] Last Admin: 07/10/17 09:13 Dose: 25 mg Temazepam (Restoril) 15 mg PO BEDTIME PRN PRN Reason: Sleep Last Admin: 07/08/17 21:04 Dose: 15 mg Discontinued Medications Albuterol (Proventil Neb Soln) 2.5 mg NEB ONETIME ONE Stop: 07/08/17 10:13 Last Admin: 07/08/17 10:19 Dose: 2.5 mg Albuterol/Ipratropium (Duoneb 3.0-0.5 Mg/3 Ml) 3 ml NEB ONETIME ONE Stop: 07/08/17 09:22 Last Admin: 07/08/17 09:27 Dose: 3 ml Albuterol/Ipratropium (Duoneb 3.0-0.5 Mg/3 Ml) Confirm Administered Dose 3 ml .ROUTE .STK-MED ONE Stop: 07/08/17 09:28 Last Admin: 07/08/17 09:38 Dose: Not Given Bumetanide (Bumex) 0.5 mg IVPUSH ONETIME ONE Stop: 07/09/17 17:36 Last Admin: 07/09/17 18:22 Dose: 0.5 mg Fentanyl (Duragesic) 12 mcg TRDERM Q72H [facility] Last Admin: 07/08/17 18:43 Dose: 12 mcg Furosemide (Lasix) 40 mg PO BIDDIURETIC [facility] Last Admin: 07/09/17 15:20 Dose: 40 mg Hydromorphone HCl (Dilaudid) 0.5 mg IVPUSH ONETIME ONE Stop: 07/08/17 09:28 Last Admin: 07/08/17 09:35 Dose: 0.5 mg Hydromorphone HCl (Dilaudid) 0.5 mg IVPUSH ONETIME ONE Stop: 07/08/17 10:13 Last Admin: 07/08/17 10:36 Dose: 0.5 mg Azithromycin 250 mg/ Sodium (Chloride) 250 mls @ 250 mls/hr IV ONETIME ONE Stop: 07/08/17 15:10 Last Admin: 07/08/17 19:50 Dose: Not Given Azithromycin 250 mg/ Sodium (Chloride) 250 mls @ 250 mls/hr IV Q24H [facility] Methylprednisolone Sodium Succinate (Solu-Medrol) 125 mg IVPUSH ONETIME ONE Stop: 07/08/17 09:22 Last Admin: 07/08/17 09:37 Dose: 125 mg Methylprednisolone Sodium Succinate (Solu-Medrol) 125 mg IVPUSH Q8H [facility] Last Admin: 07/09/17 17:17 Dose: 125 mg Methylprednisolone Sodium Succinate (Solu-Medrol) 125 mg IVPUSH ONETIME ONE Stop: 07/09/17 21:01 Last Admin: 07/09/17 20:45 Dose: 125 mg Morphine Sulfate (Morphine) 2 mg IVPUSH Q4H PRN PRN Reason: Other Stop: 07/09/17 12:04 Last Admin: 07/08/17 16:24 Dose: 2 mg Non-Formulary Medication (Hydrocodone/Acetaminophen) 1 tab PO Q6H PRN PRN Reason: Pain Pneumococcal Polyvalent Vaccine (Pneumovax 23) 0.5 ml IM .ONCE ONE Stop: 07/08/17 11:34 Pregabalin (Lyrica) 150 mg PO Q8H PRN PRN Reason: Pain Last Admin: 07/08/17 15:37 Dose: 150 mg - Exam Quality Assessment: Reports: Supplemental Oxygen General: Reports: Alert, Oriented, Cooperative, No Acute Distress HEENT: Reports: Pupils Equal, Pupils Reactive, EOMI, Mucous Membr. Moist/Oasis Neck: Reports: Supple, No JVD, No Thyromegaly Lungs: Reports: Normal Respiratory Effort, Decreased Breath Sounds, Wheezing Cardiovascular: Reports: Other (Distant heart sound) GI/Abdominal Exam: Normal Bowel Sounds, Soft, Non-Tender, No Organomegaly (Male) Exam: Deferred Rectal (Males) Exam: Deferred Back Exam: Reports: Normal Inspection, Decreased Range of Motion Extremities: Normal Inspection, Normal Range of Motion, Non-Tender, No Pedal Edema Skin: Reports: Warm, Dry, Intact Psy/Mental Status: Reports: Alert, Normal Affect, Normal Mood *Q Meaningful Use (DIS) - VTE *Q VTE Criteria *Q: - Stroke *Q Stroke Criteria *Q: - AMI *Q AMI Criteria *Q:
[2017-07-10] MEDS: Temazepam 15 MG Cap PO PRN (21:05)
[2017-07-11] MEDS: Albuterol/Ipratropium 3.0-0.5 MG/3 ML Neb Soln NEB PRN ×4 (00:27→13:18)
[2017-07-11] MEDS: oxyCODONE 5 MG Tab PO PRN (01:23)
[2017-07-11] MEDS: Morphine 2 MG/ML Syringe IVPUSH PRN ×2 (04:23→09:38)
[2017-07-11] MEDS: Pantoprazole 40 MG Tab.CR PO SCH (06:20)
[2017-07-11] MEDS: Acetaminophen/HYDROcodone 325-5 MG Tab PO PRN (06:20)
[2017-07-11] MEDS: Pregabalin 75 MG Cap PO SCH (06:20)
[2017-07-11] MEDS: Formoterol/Mometasone 200-5 MCG 8.8 GM Inhaler IH SCH (08:39)
--- NOTE | 2017-07-11 09:17 | PCM.SN ---
- Free Text/Narrative Note: Patient seen and examined at bedside. He is about the same. He has intermittent dyspnea that improves with morphine. He is contreras I could not keep him here forever but he can avail same services through [facility]osp[facility]. He is aware his current chronic illness has become terminal. There is not a whole we could do to get him any better but to improve his symptoms. He has End Stage COPD at this point.
[2017-07-11] MEDS: Amiodarone 200 MG Tab PO SCH (09:24)
[2017-07-11] MEDS: Furosemide 40 MG Tab PO SCH (09:25)
[2017-07-11] MEDS: methylPREDNISolone Sodium Succinate 125 MG/2 ML SDV IVPUSH SCH (09:26)
[2017-07-11] MEDS: Carvedilol 12.5 MG Tab PO SCH (09:27)
[2017-07-11] MEDS: Spironolactone 25 MG Tab PO SCH (09:27)
[2017-07-11] MEDS: Lisinopril 5 MG Tab PO SCH (09:27)
[2017-07-11] MEDS: Apixaban 5 MG Tab PO SCH (09:29)
[2017-07-11] MEDS: Rosuvastatin 10 MG Tab PO SCH (09:29)
[2017-07-11] MEDS: Magnesium Oxide 400 MG Tab PO SCH (09:55)
[2017-07-11 13:22] VITALS: BP 119/65
[2017-07-11] MEDS ORDERED: Pneumococcal Polyvalent-23 Vaccine 0.5 ML SDV IM ONE (13:48)
[2017-07-11] MEDS ORDERED: Diphtheria,Pertussis(Acell),Tetanus Vaccine 0.5 ML SDV IM ONE (13:48)
== END 2017-07-11 15:03 | disposition home or self-care (01) | DRG 190 ==
LOC: JD.ED 09:09 → JD.MS 11:20 → UNDOADMIN 11:20 → JD.MS 11:25
PROVIDERS: ADMIT Internal Medicine; ATTEND Internal Medicine
DX: J44.1 Chronic obstructive pulmonary disease with (acute) exacerbation (principal); R09.02 Hypoxemia; J96.21 Acute and chronic respiratory failure with hypoxia; J96.22 Acute and chronic respiratory failure with hypercapnia; E44.0 Moderate protein-calorie malnutrition; I25.10 Atherosclerotic heart disease of native coronary artery without angina pectoris; I11.0 Hypertensive heart disease with heart failure; I50.9 Heart failure, unspecified; Z95.5 Presence of coronary angioplasty implant and graft; I25.2 Old myocardial infarction; Z95.0 Presence of cardiac pacemaker; F17.210 Nicotine dependence, cigarettes, uncomplicated; N28.9 Disorder of kidney and ureter, unspecified; G89.29 Other chronic pain; M54.9 Dorsalgia, unspecified; H54.7 Unspecified visual loss; E78.5 Hyperlipidemia, unspecified; M19.90 Unspecified osteoarthritis, unspecified site; Z51.5 Encounter for palliative care; Z79.01 Long term (current) use of anticoagulants; Z99.81 Dependence on supplemental oxygen; Z79.899 Other long term (current) drug therapy
CPT/HCPCS: 36415; 36600; 71010; 80053; 82803; 83880; 84484; 85025; 86140; 93005; 94640 ×2; 96374; 96375; 96376; 99285; J1170 ×2; J2930; J7050; 80048; 83735; 90472; 90715; 90732; 93010; 94664; 94761; 97162-GP; 97165-GO; A9270-GY; G0009; J0456; J2060; J2270